=== PATIENT | female | born 1970 | race African-American/Black ===

== ENCOUNTER 2016-08-10 20:04 | Inpatient (IN) | payer OTHER ==
[2016-08-10 20:24] VITALS: BMI 29.9
--- NOTE | 2016-08-10 21:22 | HP ---
CIWA Score - CIWA Score Nausea/Vomitin-Mild Nausea/No Vomiting Muscle Tremors: 4-Moderate,w/Arms Extend Anxiety: 3 Agitation: 2 Paroxysmal Sweats: 2 Orientation: 3-Disoriented Date>2 days Tacttile Disturbances: 0-None Auditory Disturbances: 0-None Visual Disturbances: 2-Mild Sensitivity Headache: 0-None Present CIWA-Ar Total Score: 17 Admission ROS BHS - HPI Chief Complaint: WITHDRAWAL SYMPTOMS Allergies/Adverse Reactions: Allergies Allergy/AdvReac Type Severity Reaction Status Date / Time No Known Allergies Allergy Verified 10/23/15 14:41 History of Present Illness: 46 Y.O. WOMAN WITH AN EXTENSIVE HISTORY OF ALCOHOL DEPENDENCE IS SEEKING DETOX. SHE REPORTS SHE DOES NOT HAVE A SIGNIFICANT PERIOD OF SOBRIETY. SHE HAS A BRUISE AND SUBCONJUNCTIAL HEMMORRHAGE TO RIGHT EYE AFTER FALLING 4 DAYS AGO. SHE WENT TO THE ER AT [facility] FOR TREATMENT. Exam Limitations: Intoxication - Ebola screening Have you traveled outside of the country in the last 21 days: No (N) Have you had contact with anyone from an Ebola affected area: No Have you been sick,other than usual withdrawal symptoms: No Do you have a fever: No - Review of Systems Constitutional: Changes in sleep EENT: reports: Eye Pain, Other (subconjunctival hemorrhage and bruise to right eye) Respiratory: reports: Shortness of Breath (HX ASTHMA) Cardiac: reports: Other (ENLARGED HEART) GI: reports: Constipated : reports: No Symptoms Reported Musculoskeletal: reports: Joint Pain (LEFT KNEE) Integumentary: reports: Bruising (RIGHT EYE) Neuro: reports: Seizure (1 YEAR AGO), Tremors Endocrine: reports: No Symptoms Reported Hematology: reports: Anemia Psychiatric: reports: Anxious, Depressed, other (BIPOLAR) Other Systems: Reviewed and Negative Patient History - Patient Medical History Hx Anemia: Yes (no medication) Hx Asthma: Yes Hx Chronic Obstructive Pulmonary Disease (COPD): No Hx Cancer: No Hx Cardiac Disorders: No Hx Congestive Heart Failure: Yes Hx Hypertension: Yes Hx Hypercholesterolemia: Yes Hx Pacemaker: No HX Cerebrovascular Accident: No Hx Seizures: Yes (1 YEAR AGO ) Hx Dementia: No Hx Diabetes: No Hx Gastrointestinal Disorders: Yes Hx Liver Disease: Yes (CIRRHOSHIS ) Hx Genitourinary Disorders: No Hx Sexually Transmitted Disorders: No Hx Renal Disease (ESRD): No Hx Thyroid Disease: No Hx Human Immunodeficiency Virus (HIV): No Hx Hepatitis C: Yes Hx Depression: Yes Hx Suicide Attempt: No Hx Bipolar Disorder: Yes Hx Schizophrenia: No - Patient Surgical History Past Surgical History: No Hx Neurologic Surgery: No Hx Cataract Extraction: No Hx Cardiac Surgery: No Hx Lung Surgery: No Hx Breast Surgery: No Hx Breast Biopsy: No Hx Abdominal Surgery: No Hx Appendectomy: No Hx Cholecystectomy: No Hx Genitourinary Surgery: No Hx Section: No Hx Orthopedic Surgery: No Anesthesia Reaction: No - PPD History Previous Implant?: Yes Documented Results: Negative w/o proof Date: 10/03/15 PPD to be Administered?: Yes - Reproductive History Patient is a Female of Child Bearing Age (11 -55 yrs old): Yes Last Menstrual Period: 04/01/16 Patient : No - Smoking Cessation Smoking history: Never smoked Have you smoked in the past 12 months: No Aproximately how many cigarettes per day: 0 Hx Chewing Tobacco Use: No - Substance & Tx. History Hx Alcohol Use: Yes Hx Substance Use: No (DETOX AND REHAB ) Substance Use Type: Alcohol Hx Substance Use Treatment: Yes (ALCOHOL AND DETOX ) - Substances Abused Alcohol Route: Oral Frequency: Daily Amount used: 1-2 PINTS OF LIQUOR Age of first use: 24 Date of Last Use: 08/10/16 Family Disease History - Family Disease History Family Disease History: Diabetes: Mother, Heart Disease: Mother, CA: Mother, Other: Son (ALCOHOL DEPENDENT ) Admission Physical Exam BHS - Vital Signs Vital Signs: Vital Signs - 24 hr 08/10/16 20:22 Temperature 96.8 F L Pulse Rate 92 H Respiratory 18 Rate Blood Pressure 130/85 - Physical General Appearance: Yes: Alcohol on Breath, Intoxicated, Tremorous, Irritable, Anxious HEENTM: Yes: Other (RIGHT SUBCONJUNCTIVAL HEMORRHAGE) Respiratory: Yes: Chest Non-Tender, Lungs Clear, Normal Breath Sounds Neck: Yes: No masses,lesions,Nodules, Trachea in good position Breast: Yes: Breast Exam Deferred Cardiology: Yes: Regular Rhythm, Regular Rate, S1, S2 Abdominal: Yes: Non Tender, Flat Genitourinary: Yes: Other (NO COMPLAINTS REPORTED) Back: Yes: Normal Inspection Musculoskeletal: Yes: full range of Motion, Joint Stiffness Extremities: Yes: Tremors Neurological: Yes: Alert, Confused Integumentary: Yes: Normal Color, Warm, Pitting Edema (B/L LE) Lymphatic: Yes: Within Normal Limits - Diagnostic (1) Alcohol dependence with uncomplicated withdrawal Current Visit: Yes Status: Chronic (2) CHF (congestive heart failure) Current Visit: Yes Status: Chronic Qualifiers: Congestive heart failure type: unspecified congestive heart failure type (3) Eye injury, superficial Current Visit: Yes Status: Acute Qualifiers: Laterality: right (4) History of seizure Current Visit: Yes Status: Chronic (5) Asthma Current Visit: Yes Status: Chronic Cleared for Admission [facility] - Detox or Rehab [facility] Level of Care: Medically Managed Detox Regimen/Protocol: Librium [facility] Breath Alcohol Content Breath Alcohol Content: 0.275 Urine Pregancy Test - Result Urine Test Results: Negative- NO Line Present Urine Drug Screen - Results Drug Screen Negative: No Urine Drug Screen Results: BZO-Benzodiazepines
[2016-08-10] MEDS ORDERED: MAGNESIUM CITRATE 300 ML BOTTLE PO PRN (21:51)
[2016-08-10] MEDS ORDERED: MENTHOL/PHENOL 1 EACH UD MM PRN (21:51)
[2016-08-10] MEDS ORDERED: chlordiazePOXIDE HCL 25 MG CAPSULE PO ONE (21:51)
[2016-08-10] MEDS ORDERED: P-EPHED 60MG/TRIPROLIDI 2.5MG TABLET PO PRN (21:51)
[2016-08-10] MEDS ORDERED: guaiFENesin/D-METHORPHAN HB 10 ML UNIT-DOSE CUPS PO PRN (21:51)
[2016-08-10] MEDS ORDERED: LOPERAMIDE HCL 2 MG CAPSULE PO PRN (21:51)
[2016-08-10] MEDS ORDERED: MAGNESIUM HYDROX 2400MG/30ML ORAL SUSPENSION 30 ML CUP PO PRN (21:51)
[2016-08-10] MEDS ORDERED: diphenhydrAMINE HCL 50 MG CAPSULE PO PRN (21:51)
[2016-08-10] MEDS ORDERED: IBUPROFEN 400 MG TABLET (FP) PO PRN (21:51)
[2016-08-10] MEDS ORDERED: MAG HYDROX/AL HYDROX/SIMETH 30 ML UNIT-DOSE CUP PO PRN (21:51)
[2016-08-11] MEDS: levETIRAcetam 500 MG TABLET (FP) PO SCH ×3 (01:58→22:57)
[2016-08-11] MEDS ORDERED: chlordiazePOXIDE HCL 25 MG CAPSULE PO ONE (02:00)
[2016-08-11] MEDS: THIAMINE HCL 100 MG TABLET (FP) PO SCH ×2 (02:11→22:57)
[2016-08-11] MEDS: chlordiazePOXIDE HCL 25 MG CAPSULE PO SCH ×5 (02:11→22:57)
[2016-08-11] MEDS: CARVEDILOL 3.125 MG TABLET (FP) PO SCH (10:14)
[2016-08-11] MEDS: PRENATAL VITAMINS W/ FOLIC ACID TABLET (FP) PO SCH (10:15)
--- NOTE | 2016-08-11 10:36 | PN ---
S CIWA - CIWA Score Nausea/Vomitin Muscle Tremors: 4-Moderate,w/Arms Extend Anxiety: 3 Agitation: 2 Paroxysmal Sweats: 3 Orientation: 0-Oriented Tacttile Disturbances: 2-Mild Itch/Numbness/Burn Auditory Disturbances: 0-None Visual Disturbances: 0-None Headache: 0-None Present CIWA-Ar Total Score: 16 BHS Progress Note (SOAP) Subjective: interrupted sleep, sweats, shakes , od hemmorhage Assessment: 08/11/16 10:33 Vital Signs Temperature 98.4 F 08/11/16 10:21 Pulse Rate 103 H 08/11/16 10:21 Respiratory Rate 16 08/11/16 10:21 Blood Pressure 140/93 08/11/16 10:21 O2 Sat by Pulse Oximetry (%) labs pending 08/11/16 10:34 pt aox3 ambulating , tremulous OD ecchymosis inferior orbit , sub conjunctival hemorrhage rt lat 08/11/16 10:35 withdrawal sx's conjunctival hemmorhage OD Plan: cont dettox increase fluids librium prn warm compresses to od
[2016-08-11 10:51] LABS: ALBUMIN 2.9 g/dl (3.4-5.0); ALK PHOS 206 U/L (45-117); ANION GAP 14 (8-16); BILIRUBIN,TOTAL 2.8 mg/dL (0.2-1.0); CO2 22 mmol/L (21-32); CREATININE 0.6 mg/dL (0.55-1.02); GLUCOSE,RANDOM 149 mg/dL (74-106); SGOT/AST 137 U/L (15-37); SGPT/ALT 36 U/L (12-78); TOT PROT 6.8 g/dl (6.4-8.2)
[2016-08-11 11:01] LABS: MCH 32.2 pg (25.7-33.7); MCHC 32.2 g/dl (32.0-36.0); MEAN CELL VOLUME 100.1 fl (80-96); RDW 16.2 % (11.6-15.6); WHITE BLOOD COUNT 2.2 K/mm3 (4.0-10.0)
[2016-08-11 11:12] LABS: PLATELET COUNT 18 K/MM3 (134-434)
--- NOTE | 2016-08-11 11:51 | EKG ---
Test Reason : Blood Pressure : / mmHG Vent. Rate : 072 BPM Atrial Rate : 072 BPM P-R Int : 154 ms QRS Dur : 090 ms QT Int : 464 ms P-R-T Axes : 060 040 044 degrees QTc Int : 508 ms NORMAL SINUS RHYTHM VOLTAGE CRITERIA FOR LEFT VENTRICULAR HYPERTROPHY NONSPECIFIC ST AND T WAVE ABNORMALITY PROLONGED QT ABNORMAL ECG WHEN COMPARED WITH ECG OF 23-OCT-2015 17:59, NO SIGNIFICANT CHANGE WAS FOUND Confirmed by DALLAS PICKARD MD ([id number]) on 08/11/2016 11:51:07 AM Referred By: Confirmed By:DALLAS PICKARD MD
--- NOTE | 2016-08-11 12:05 | PN ---
[facility] Progress Note Note: 46 y/o f pt admitted for alcohol detox. Pt has h/o fall 4 days ago with OD subconj. hemorrhage and infr-orbital ecchymosis . Pt platlet count is 18k and eye was never evaluated . Has PMHX -chf, sz d/o, asthma , hep c . and pancytopenia Laboratory Tests 08/11/16 08/11/16 08/11/16 07:00 07:00 07:00 WBC 2.2 L RBC 2.87 L Hgb 9.2 L Hct 28.7 L MCV 100.1 H MCHC 32.2 RDW 16.2 H Plt Count 18 L* D MPV 9.0 Sodium 142 Potassium 3.5 Chloride 106 Carbon Dioxide 22 Anion Gap 14 BUN 17 D Creatinine 0.6 D Creat Clearance w eGFR > 60 Random Glucose 149 H D Calcium 8.0 L Total Bilirubin 2.8 H D AST 137 H D ALT 36 D Alkaline Phosphatase 206 H D Ammonia 68.7 H Total Protein 6.8 Albumin 2.9 L imp- OD trauma pancytopenia -platlets 18k elevated transaminases -hep c elevated ammonia level etoh withdrawal Plan- Ed evaluation pt signed out to Ray Marroquin in ED [facility] ambulette notified
[2016-08-11] MEDS: chlordiazePOXIDE HCL 25 MG CAPSULE PO PRN ×2 (12:40→20:17)
[2016-08-11 15:32] LABS: URINE APPEARANCE CLEAR; URINE BILIRUBIN NEGATIVE (NEGATIVE); URINE COLOR AMBER; URINE GLUCOSE (UA) NEGATIVE (NEGATIVE); URINE KETONE NEGATIVE (NEGATIVE); URINE LEUK ESTERASE NEGATIVE (NEGATIVE); URINE NITRITE NEGATIVE (NEGATIVE); URINE PROTEIN NEGATIVE (NEGATIVE); URINE UROBILINOGEN 4.0 E.U/dl E.U./dl (0.2-1.0)
[2016-08-11 15:38] LABS: URINE BLOOD 1+ (NEGATIVE)
[2016-08-11 16:06] LABS: URINE MUCUS RARE; URINE RBC 5 /hpf (0-3); URINE WBC 3 /hpf (3-5)
[2016-08-12] MEDS: ACETAMINOPHEN 325 MG TABLET (FP) PO PRN ×4 (03:48→19:55)
[2016-08-12] MEDS: chlordiazePOXIDE HCL 25 MG CAPSULE PO SCH ×3 (05:42→17:17)
[2016-08-12] MEDS: levETIRAcetam 500 MG TABLET (FP) PO SCH ×2 (10:19→22:07)
[2016-08-12] MEDS: PRENATAL VITAMINS W/ FOLIC ACID TABLET (FP) PO SCH (10:19)
[2016-08-12] MEDS: CARVEDILOL 3.125 MG TABLET (FP) PO SCH (10:20)
[2016-08-12] MEDS ORDERED: COLLOIDAL OATMEAL 1 BAR EACH TP PRN (11:14)
--- NOTE | 2016-08-12 11:19 | PN ---
S CIWA - CIWA Score Nausea/Vomitin-No Nausea/No Vomiting Muscle Tremors: 4-Moderate,w/Arms Extend Anxiety: 3 Agitation: 3 Paroxysmal Sweats: 3 Orientation: 0-Oriented Tacttile Disturbances: 0-None Auditory Disturbances: 0-None Visual Disturbances: 0-None Headache: 0-None Present CIWA-Ar Total Score: 13 S Progress Note (SOAP) Subjective: sweats shakes itchy skin agitation Objective: 08/12/16 11:15 Vital Signs Temperature 98.1 F 08/12/16 09:36 Pulse Rate 91 H 08/12/16 09:36 Respiratory Rate 16 08/12/16 09:36 Blood Pressure 129/91 08/12/16 09:36 O2 Sat by Pulse Oximetry (%) Laboratory Tests 08/11/16 08/11/16 08/11/16 07:00 07:00 07:00 WBC 2.2 L RBC 2.87 L Hgb 9.2 L Hct 28.7 L MCV 100.1 H MCHC 32.2 RDW 16.2 H Plt Count 18 L* D MPV 9.0 Sodium 142 Potassium 3.5 Chloride 106 Carbon Dioxide 22 Anion Gap 14 BUN 17 D Creatinine 0.6 D Creat Clearance w eGFR > 60 Random Glucose 149 H D Calcium 8.0 L Total Bilirubin 2.8 H D AST 137 H D ALT 36 D Alkaline Phosphatase 206 H D Ammonia Total Protein 6.8 Albumin 2.9 L Urine Color Urine Appearance Urine pH Ur Specific [place] Urine Protein Urine Glucose (UA) Urine Ketones Urine Blood Urine Nitrite Urine Bilirubin Urine Urobilinogen Ur Leukocyte Esterase Urine RBC Urine WBC Ur Epithelial Cells Urine Mucus RPR Titer Nonreactive 08/11/16 08/11/16 07:00 11:20 WBC RBC Hgb Hct MCV MCHC RDW Plt Count MPV Sodium Potassium Chloride Carbon Dioxide Anion Gap BUN Creatinine Creat Clearance w eGFR Random Glucose Calcium Total Bilirubin AST ALT Alkaline Phosphatase Ammonia 68.7 H Total Protein Albumin Urine Color [place] Urine Appearance Clear Urine pH 6.0 Ur Specific [place] 1.020 Urine Protein Negative Urine Glucose (UA) Negative Urine Ketones Negative Urine Blood 1+ H Urine Nitrite Negative Urine Bilirubin Negative Urine Urobilinogen 4.0 e.u/dl H Ur Leukocyte Esterase Negative Urine RBC 5 Urine WBC 3 Ur Epithelial Cells Rare Urine Mucus Rare RPR Titer cbc and cmp labs repeated awake/alert ambulating no acute distress Assessment: 08/12/16 11:16 withdrawal sx dry skin Plan: continue detox increase fluids aveeno soap benadryl prn lac hydrin
[2016-08-12] MEDS: AMMONIUM LACTATE 12% LOTION 225 GM BOTTLE TP PRN (12:06)
[2016-08-12] MEDS: hydrOXYzine PAMOATE 50 MG CAPSULE (FP) PO PRN (13:11)
[2016-08-12] MEDS: THIAMINE HCL 100 MG TABLET (FP) PO SCH (22:07)
[2016-08-12] MEDS: chlordiazePOXIDE 5 MG CAPSULE PO SCH (22:07)
[2016-08-12] MEDS: diphenhydrAMINE HCL 25 MG CAPSULE (FP) PO PRN (22:11)
[2016-08-13] MEDS: chlordiazePOXIDE HCL 25 MG CAPSULE PO PRN (01:49)
[2016-08-13] MEDS: hydrOXYzine PAMOATE 50 MG CAPSULE (FP) PO PRN (01:49)
[2016-08-13] MEDS: chlordiazePOXIDE 5 MG CAPSULE PO SCH ×3 (04:51→17:34)
--- NOTE | 2016-08-13 09:49 | PN ---
S Progress Note (SOAP) Subjective: alert,no complaint Objective: 08/13/16 09:48 Vital Signs Temperature 97.9 F 08/13/16 06:00 Pulse Rate 111 H 08/13/16 06:00 Respiratory Rate 20 08/13/16 06:00 Blood Pressure 106/78 08/13/16 06:00 O2 Sat by Pulse Oximetry (%) Assessment: 08/13/16 09:48 withdrawal symptom Plan: continue detox,awaiting for repeat cbc,cmp
--- NOTE | 2016-08-13 09:52 | PN ---
BHS Progress Note Note: ammonia level is 68.7 lactulose 20 grams po bid
[2016-08-13] MEDS: levETIRAcetam 500 MG TABLET (FP) PO SCH ×2 (09:53→22:31)
[2016-08-13] MEDS: PRENATAL VITAMINS W/ FOLIC ACID TABLET (FP) PO SCH (09:53)
[2016-08-13] MEDS: LACTULOSE 20 GM/30 ML UDC (FOR ORAL USE ONLY) PO SCH ×2 (10:11→22:31)
[2016-08-13] MEDS: CARVEDILOL 3.125 MG TABLET (FP) PO SCH (10:11)
[2016-08-13 10:21] LABS: BASOPHIL 0.9 % (0-2.0); EOSINOPHIL 1.6 % (0-4.5); MCH 32.7 pg (25.7-33.7); MCHC 33.1 g/dl (32.0-36.0); MEAN CELL VOLUME 98.8 fl (80-96); MEAN PLT VOLUME 9.5 fl (7.5-11.1); NEUTROPHILS 66.3 % (42.8-82.8); PLATELET COUNT 37 K/MM3 (134-434); RDW 16.2 % (11.6-15.6); WHITE BLOOD COUNT 3.4 K/mm3 (4.0-10.0)
[2016-08-13 11:52] LABS: ALBUMIN 3.3 g/dl (3.4-5.0); ALK PHOS 209 U/L (45-117); ANION GAP 9 (8-16); BILIRUBIN,TOTAL 3.9 mg/dL (0.2-1.0); CALCIUM 8.9 mg/dL (8.5-10.1); CO2 26 mmol/L (21-32); CREATININE 0.6 mg/dL (0.55-1.02); GLUCOSE,RANDOM 90 mg/dL (74-106); SGOT/AST 155 U/L (15-37); SGPT/ALT 42 U/L (12-78); TOT PROT 7.4 g/dl (6.4-8.2)
[2016-08-13] MEDS: diphenhydrAMINE HCL 25 MG CAPSULE (FP) PO PRN (18:35)
[2016-08-13] MEDS: AMMONIUM LACTATE 12% LOTION 225 GM BOTTLE TP PRN (22:31)
[2016-08-13] MEDS: THIAMINE HCL 100 MG TABLET (FP) PO SCH (22:31)
[2016-08-13] MEDS: chlordiazePOXIDE HCL 10 MG CAPSULE PO SCH (22:31)
[2016-08-13] MEDS: ACETAMINOPHEN 325 MG TABLET (FP) PO PRN (22:33)
[2016-08-14] MEDS: diphenhydrAMINE HCL 25 MG CAPSULE (FP) PO PRN (03:03)
[2016-08-14] MEDS: chlordiazePOXIDE HCL 10 MG CAPSULE PO SCH (05:02)
[2016-08-14 06:30] VITALS: BP 116/54; PULSE 94; TEMP 97.7
--- NOTE | 2016-08-14 08:03 | PN ---
S Progress Note (SOAP) Subjective: ALERT,NO COMPLAINT Objective: 08/14/16 08:10 Vital Signs Temperature 97.7 F 08/14/16 06:30 Pulse Rate 94 H 08/14/16 06:30 Respiratory Rate 16 08/14/16 06:30 Blood Pressure 116/54 08/14/16 06:30 O2 Sat by Pulse Oximetry (%) 08/14/16 08:10 Laboratory Last Values WBC 3.4 K/mm3 (4.0-10.0) L D 08/13/16 07:00 RBC 3.29 M/mm3 (3.60-5.2) L 08/13/16 07:00 Hgb 10.7 GM/dL (10.7-15.3) D 08/13/16 07:00 Hct 32.5 % (32.4-45.2) 08/13/16 07:00 MCV 98.8 fl (80-96) H 08/13/16 07:00 MCHC 33.1 g/dl (32.0-36.0) 08/13/16 07:00 RDW 16.2 % (11.6-15.6) H 08/13/16 07:00 Plt Count 37 K/MM3 (134-434) L D 08/13/16 07:00 MPV 9.5 fl (7.5-11.1) 08/13/16 07:00 Neutrophils % 66.3 % (42.8-82.8) 08/13/16 07:00 Lymphocytes % 13.9 % (8-40) 08/13/16 07:00 Monocytes % 17.3 % (3.8-10.2) H 08/13/16 07:00 Eosinophils % 1.6 % (0-4.5) D 08/13/16 07:00 Basophils % 0.9 % (0-2.0) 08/13/16 07:00 Sodium 134 mmol/L (136-145) L 08/13/16 07:00 Potassium 4.0 mmol/L (3.5-5.1) 08/13/16 07:00 Chloride 99 mmol/L (98-107) 08/13/16 07:00 Carbon Dioxide 26 mmol/L (21-32) 08/13/16 07:00 Anion Gap 9 (8-16) 08/13/16 07:00 BUN 24 mg/dL (7-18) H D 08/13/16 07:00 Creatinine 0.6 mg/dL (0.55-1.02) 08/13/16 07:00 Creat Clearance w eGFR > 60 (>60) 08/13/16 07:00 Random Glucose 90 mg/dL (74-106) D 08/13/16 07:00 Calcium 8.9 mg/dL (8.5-10.1) 08/13/16 07:00 Total Bilirubin 3.9 mg/dL (0.2-1.0) H D 08/13/16 07:00 AST 155 U/L (15-37) H 08/13/16 07:00 ALT 42 U/L (12-78) 08/13/16 07:00 Alkaline Phosphatase 209 U/L (45-117) H 08/13/16 07:00 Ammonia 68.7 umol/L (11-32) H 08/11/16 07:00 Total Protein 7.4 g/dl (6.4-8.2) 08/13/16 07:00 Albumin 3.3 g/dl (3.4-5.0) L 08/13/16 07:00 Urine Color [place] 08/11/16 11:20 Urine Appearance Clear 08/11/16 11:20 Urine pH 6.0 (5.0-8.0) 08/11/16 11:20 Ur Specific [place] 1.020 (1.001-1.035) 08/11/16 11:20 Urine Protein Negative (NEGATIVE) 08/11/16 11:20 Urine Glucose (UA) Negative (NEGATIVE) 08/11/16 11:20 Urine Ketones Negative (NEGATIVE) 08/11/16 11:20 Urine Blood 1+ (NEGATIVE) H 08/11/16 11:20 Urine Nitrite Negative (NEGATIVE) 08/11/16 11:20 Urine Bilirubin Negative (NEGATIVE) 08/11/16 11:20 Urine Urobilinogen 4.0 e.u/dl E.U./dl (0.2-1.0) H 08/11/16 11:20 Ur Leukocyte Esterase Negative (NEGATIVE) 08/11/16 11:20 Urine RBC 5 /hpf (0-3) 08/11/16 11:20 Urine WBC 3 /hpf (3-5) 08/11/16 11:20 Ur Epithelial Cells Rare /hpf (FEW) 08/11/16 11:20 Urine Mucus Rare 08/11/16 11:20 RPR Titer Nonreactive (NONREACTIVE) 08/11/16 07:00 Assessment: 08/14/16 08:11 NO WITHDRAWAL SYMPTOM Plan: DISCHARGE TODAY,FOLLOW UP WITH AFTER CARE PROGRAM ARRANGEMENT AND PMD FOR MEDICAL PROBLEM
--- NOTE | 2016-08-14 08:19 | DS ---
[facility] Detox Discharge Summary Admission Date: 08/10/16 Discharge Date: 08/14/16 - History Present History: Alcohol Dependence Additional Comments: FOLLOW UP WITH AFTER CARE PROGRAM ARRANGEMENT AND TO SEE PMD FOR MEDICAL PROBLEM AND PANCYTOPENIA,SEIZURE,HEPATITIS C,AZOTHEMIA AND ELEVATION OF AMMONIA Pertinent Past History: SEIZURE ASTHMA HYPERTENSION INJURY TO RIGHT EYE WITH SUBCONJUNCTIVAL HEMORRHAGE CHF - Physical Exam Results Vital Signs: Vital Signs Temperature 97.7 F 08/14/16 06:30 Pulse Rate 94 H 08/14/16 06:30 Respiratory Rate 16 08/14/16 06:30 Blood Pressure 116/54 08/14/16 06:30 O2 Sat by Pulse Oximetry (%) Pertinent Admission Physical Exam Findings: WITHDRAWAL SYMPTOM - Treatment Hospital Course: Detox Protocol Followed, Detoxed Safely, Responded well, Discharged Condition Good (DECLINED) - Medication Discharge Medications: Ambulatory Orders Folic Acid - 1 mg PO DAILY 02/20/14 Multivitamins [Multivit ([facility] Formulary)] 1 tab PO DAILY 02/20/14 Thiamine HCl [Vitamin B-1] 100 mg PO DAILY 02/20/14 Carvedilol [Coreg -] 12.5 mg PO DAILY #60 tablet 03/28/14 Furosemide [Lasix -] 20 mg PO DAILY #30 tablet 03/28/14 Levetiracetam [Keppra -] 500 mg PO DAILY #30 tablet 03/28/14 Gabapentin [Neurontin -] 300 mg PO TID #90 capsule 03/29/14 Risperidone [Risperdal -] 1 mg PO HS #30 tablet 03/29/14 Trazodone HCl [Desyrel -] 150 mg PO HS #30 tablet 03/29/14 Lisinopril [Zestril] 10 mg PO DAILY 10/01/15 Quetiapine Fumarate [Seroquel] 150 mg PO HS 10/01/15 Chlordiazepoxide [Librium -] 15 mg PO [id number] #3 capsule MDD 300 10/25/15 - Diagnosis (1) Acquired pancytopenia Current Visit: No Status: Acute (2) Alcohol dependence with uncomplicated withdrawal Current Visit: Yes Status: Chronic (3) Asthma Current Visit: Yes Status: Chronic (4) CHF (congestive heart failure) Current Visit: Yes Status: Chronic Qualifiers: Congestive heart failure type: unspecified congestive heart failure type (5) History of seizure Current Visit: Yes Status: Chronic (6) Essential hypertension Current Visit: No Status: Chronic (7) Hepatitis C Current Visit: No Status: Chronic Qualifiers: Viral hepatitis chronicity: chronic Hepatic coma status: without hepatic coma Qualified Code(s): B18.2 - Chronic viral hepatitis C (8) Bipolar 1 disorder Current Visit: No Status: Suspected (9) Increased ammonia level Current Visit: Yes Status: Acute
== END 2016-08-14 09:17 | disposition home or self-care (01) | DRG 775 ==
LOC: YASAS 20:04 → Y6N 22:29
PROVIDERS: ADMIT Internal Medicine Addiction Medicine; ATTEND Internal Medicine Addiction Medicine
PROC: HZ2ZZZZ Detoxification Services for Substance Abuse Treatment (ICD-10-PCS; principal; 2016-08-14)
DX: F10.230 Alcohol dependence with withdrawal, uncomplicated (principal); F31.89 Other bipolar disorder; I10 Essential (primary) hypertension; I50.9 Heart failure, unspecified; B18.2 Chronic viral hepatitis C; J45.909 Unspecified asthma, uncomplicated; D61.818 Other pancytopenia; H11.31 Conjunctival hemorrhage, right eye; R79.89 Other specified abnormal findings of blood chemistry
CPT/HCPCS: 36415; 80053; 81003; 81015; 82140; 85025; 85027; 86593; 93005; 93010

== ENCOUNTER 2016-08-11 13:02 | Emergency (ER) | payer OTHER ==
[2016-08-11 13:15] VITALS: TEMP 99.5; BMI 27.3
--- NOTE | 2016-08-11 13:46 | PDOC ---
History of Present Illness - General History Source: Patient Exam Limitations: No Limitations - History of Present Illness Initial Comments: 08/11/16 13:51 The patient is a 46-year-old woman with a significant history of anemia, hepatitis C, pancytopenia, hypertension, hypercholesterolemia, asthma, congestive heart failure and seizures who was admitted to [facility] for alcohol detox who was sent to the emergency department via EMS for further evaluation a low platelet count. As per [facility], the patient's platelets were noted to be "18,000". She fell and injured her head approximately 4 days ago. She was noted to have injuries to her eyes and was sent to the ER for a head CT. HPI is limited. <Chioma Cantu - Last Filed: 08/11/16 14:26> <Wellington Wilder - Last Filed: 08/11/16 16:38> - General Chief Complaint: Revisit, Lab Variance Stated Complaint: ABNORMAL LABS Time Seen by Provider: 08/11/16 13:14 Past History <Chioma Cantu - Last Filed: 08/11/16 14:26> - Past Medical History Anemia: Yes (no medication) Asthma: Yes Cancer: No Cardiac Disorders: No CVA: No COPD: No CHF: Yes Dementia: No Diabetes: No GI Disorders: Yes Disorders: No HTN: Yes Hypercholesterolemia: Yes Kidney Stones: No Liver Disease: Yes (CIRRHOSHIS ) Suicide Attempt (Hx): No Seizures: Yes (1 YEAR AGO ) Thyroid Disease: No - Surgical History Abdominal Surgery: No Appendectomy: No Cardiac Surgery: No Cholecystectomy: No Lung Surgery: No Neurologic Surgery: No Orthopedic Surgery: No - Reproductive History PID: No - Psycho/Social/Smoking Cessation Hx Anxiety: Yes Suicidal Ideation: No Smoking History: Never smoked Have you smoked in the past 12 months: Yes Number of Cigarettes Smoked Daily: 0 Information on smoking cessation initiated: No 'Breaking Loose' booklet given: 10/01/15 Hx Alcohol Use: Yes Drug/Substance Use Hx: No Substance Use Type: Alcohol Hx Substance Use Treatment: Yes (ALCOHOL AND DETOX ) <Wellington Wilder - Last Filed: 08/11/16 16:38> - Past Medical History Allergies/Adverse Reactions: Allergies Allergy/AdvReac Type Severity Reaction Status Date / Time No Known Allergies Allergy Verified 08/11/16 13:12 Home Medications: Ambulatory Orders Folic Acid - 1 mg PO DAILY 02/20/14 Multivitamins [Multivit ([facility] Formulary)] 1 tab PO DAILY 02/20/14 Thiamine HCl [Vitamin B-1] 100 mg PO DAILY 02/20/14 Carvedilol [Coreg -] 12.5 mg PO DAILY #60 tablet 03/28/14 Furosemide [Lasix -] 20 mg PO DAILY #30 tablet 03/28/14 Levetiracetam [Keppra -] 500 mg PO DAILY #30 tablet 03/28/14 Gabapentin [Neurontin -] 300 mg PO TID #90 capsule 03/29/14 Risperidone [Risperdal -] 1 mg PO HS #30 tablet 03/29/14 Trazodone HCl [Desyrel -] 150 mg PO HS #30 tablet 03/29/14 Lisinopril [Zestril] 10 mg PO DAILY 10/01/15 Quetiapine Fumarate [Seroquel] 150 mg PO HS 10/01/15 Chlordiazepoxide [Librium -] 15 mg PO G4D-TMO #3 capsule MDD 300 10/25/15 Review of Systems - Review of Systems Constitutional: No: Chills, Fever HEENTM: No: Recent change in vision Respiratory: No: Cough Cardiac (ROS): No: Chest Pain ABD/GI: No: Nausea, Vomiting Musculoskeletal: No: Joint Pain, Muscle Pain Neurological: No: Headache, Dizziness All Other Systems: Reviewed and Negative <Wellington Wilder - Last Filed: 08/11/16 16:38> *Physical Exam - Vital Signs Last Vital Signs Temp Pulse Resp BP Pulse Ox 99.5 F 75 20 142/94 100 08/11/16 13:12 08/11/16 13:12 08/11/16 13:12 08/11/16 13:12 08/11/16 13:12 - Physical Exam Comments: 08/11/16 13:51 General: Somnolent but arousable to verbal stimuli. Head: Atraumatic and nontender. HEENT: There is ecchymosis around the right eye with mild subconjunctival hemorrhage laterally on the right No bony step off or deformity. Pupils are equal round and reactive to light, extraocular movements are intact with intact vertical gaze, bilaterally. The tympanic membranes are clear, no hemotympanum. No septal hematoma. The oropharynx is clear. There is a 2 mm abrasion to the right lower lip and the tip of the right tongue that is actively bleeding Neck: The trachea is midline, there is no stridor. There is no midline cervical spine tenderness, full range of motion of neck. Chest: Nontender, no ecchymosis or abrasions. Heart: S1-S2, regular rate and rhythm. No murmurs. Lungs: Clear to auscultation bilaterally. Symmetric chest rise. Abdomen: Soft/nontender/nondistended. Bowel sounds are normal. There is no abdominal or flank ecchymosis. Back/Pelvis: There is no midline spinal tenderness or step-off. Pelvis is stable and nontender. Extremities: There is no extremity deformity or joint swelling. No focal bony tenderness throughout. 2+ distal pulses throughout. Neuro: Limited. Patient is somnolent but arousable to verbal stimuli. Skin: No hematomas/lacerations. Psych: Deferred. <Chioma Cantu - Last Filed: 08/11/16 14:26> - Vital Signs Last Vital Signs Temp Pulse Resp BP Pulse Ox 99.5 F 75 20 142/94 100 08/11/16 13:12 08/11/16 13:12 08/11/16 13:12 08/11/16 13:12 08/11/16 13:12 <Wellington Wilder - Last Filed: 08/11/16 16:38> Medical Decision Making - Medical Decision Making 08/11/16 13:43 A portion of this note was documented by scribe services under my direction. I have reviewed the details of the note, within reason, and agree with the documentation with the following case summary and management plan written by me. 46-year-old female with history of seizures, CHF, hep C, pancytopenia admitted to [facility] for alcohol detox with history of fall and head injury 4 days ago, now sent for further evaluation after platelets were noted to be 18,000. Patient initially told staff she was evaluated at [facility] ER after her fall, then states she was not evaluated. Periorbital and some conjunctival ecchymosis was noted, so she was sent to the ED for imaging. Vital signs stable. Periorbital ecchymosis without bony step-off with small right lateral sub- conjunctival hemorrhage Extraocular movements are intact Neurologically intact 46-year-old female with pancytopenia with fall/facial injury 4 days ago now sent in for imaging to rule out TBI. Check head CT and facial bone CT If normal, no longer concern for delayed bleeding given the injury was 4 days ago, and could return to [place] care 08/11/16 16:36 No acute intracranial pathology, no orbital fractures but there is some fluid in the sinuses. Clinically unchanged, neurologically intact, can return to [facility]. Ambulance called. <Wellington Wilder - Last Filed: 08/11/16 16:38> *DC/Admit/Observation/Transfer - Attestations Scribe Attestion: 08/11/16 13:51 Documentation prepared by Chioma Cantu, acting as medical certification specialist for Wellington Wilder MD. <Chioma Cantu - Last Filed: 08/11/16 14:26> <Wellington Wilder - Last Filed: 08/11/16 16:38> Diagnosis at time of Disposition: Pancytopenia, Alcohol dependence, continuous Head injury Qualifiers: Encounter type: initial encounter Qualified Code(s): S09.90XA - Unspecified injury of head, initial encounter - Discharge Dispostion Disposition: I.P. ALCOHOL/SUBS ABUSE REHAB Condition at time of disposition: Fair - Patient Instructions Printed Discharge Instructions: DI for Closed Head Injury Additional Instructions: Activity as tolerated. Stay hydrated. Tylenol 1000 mg every 8 hours as needed for pain. Ice and elevate the affected areas for 20 minutes every 3-4 hours to reduce swelling. Continue your medications as previously prescribed by your physician. Return to [facility] to continue your detox. Return to the emergency department for any new or concerning symptoms, particularly severe swelling, vision changes, severe headache or confusion or vomiting.
[2016-08-11 17:39] VITALS: BP 138/85; PULSE 80
== END 2016-08-11 17:30 | disposition other institution (70) ==
LOC: JER 13:02
DX: D61.818 Other pancytopenia (principal); F10.20 Alcohol dependence, uncomplicated; E78.00 Pure hypercholesterolemia, unspecified; G40.909 Epilepsy, unspecified, not intractable, without status epilepticus; J45.909 Unspecified asthma, uncomplicated; S05.11XA Contusion of eyeball and orbital tissues, right eye, initial encounter; H11.31 Conjunctival hemorrhage, right eye; W19.XXXA Unspecified fall, initial encounter; Y93.89 Activity, other specified; Y92.89 Other specified places as the place of occurrence of the external cause
CPT/HCPCS: 70450-TC; 70486-TC; 84703; 99282-25

== ENCOUNTER 2017-11-18 09:47 | Inpatient (IN) | payer OTHER ==
[2017-11-18 12:22] VITALS: BMI 28.3
--- NOTE | 2017-11-18 14:25 | HP ---
CIWA Score - CIWA Score Nausea/Vomitin Muscle Tremors: 2 Anxiety: 3 Agitation: 2 Paroxysmal Sweats: 3 Orientation: 0-Oriented Tacttile Disturbances: 1-Very Mild Itch/Numbness Auditory Disturbances: 0-None Visual Disturbances: 0-None Headache: 0-None Present CIWA-Ar Total Score: 13 Admission ROS BHS - HPI Chief Complaint: I need to stop drinking Allergies/Adverse Reactions: Allergies Allergy/AdvReac Type Severity Reaction Status Date / Time No Known Allergies Allergy Verified 11/18/17 14:12 History of Present Illness: 47 y/o m pt with h/o chronic alcoholism seeking detox. Exam Limitations: No Limitations - Ebola screening Have you traveled outside of the country in the last 21 days: No Have you had contact with anyone from an Ebola affected area: No Have you been sick,other than usual withdrawal symptoms: No Do you have a fever: No - Review of Systems Constitutional: Malaise, Night Sweats, Changes in sleep EENT: reports: No Symptoms Reported Respiratory: reports: No Symptoms reported Cardiac: reports: No Symptoms Reported GI: reports: Nausea : reports: Frequency Musculoskeletal: reports: Muscle Pain, Other (leg cramps) Integumentary: reports: No Symptoms Reported Neuro: reports: Tremors, Dizziness Endocrine: reports: No Symptoms Reported Hematology: reports: No Symptoms Reported Psychiatric: reports: Agitated, Anxious, Depressed Other Systems: Reviewed and Negative Patient History - Patient Medical History Hx Anemia: Yes (no medication) Hx Asthma: Yes Hx Chronic Obstructive Pulmonary Disease (COPD): No Hx Cancer: No Hx Cardiac Disorders: No Hx Congestive Heart Failure: Yes Hx Hypertension: Yes Hx Hypercholesterolemia: Yes Hx Pacemaker: No HX Cerebrovascular Accident: No Hx Seizures: Yes (1 YEAR AGO ) Hx Dementia: No Hx Diabetes: No Hx Gastrointestinal Disorders: Yes Hx Liver Disease: Yes (CIRRHOSHIS ) Hx Genitourinary Disorders: No Hx Sexually Transmitted Disorders: No Hx Renal Disease (ESRD): No Hx Thyroid Disease: No Hx Human Immunodeficiency Virus (HIV): No Hx Hepatitis C: Yes Hx Depression: Yes Hx Suicide Attempt: No Hx Bipolar Disorder: Yes Hx Schizophrenia: No - Patient Surgical History Past Surgical History: No Hx Neurologic Surgery: No Hx Cataract Extraction: No Hx Cardiac Surgery: No Hx Lung Surgery: No Hx Breast Surgery: No Hx Breast Biopsy: No Hx Abdominal Surgery: No Hx Appendectomy: No Hx Cholecystectomy: No Hx Genitourinary Surgery: No Hx Section: No Hx Orthopedic Surgery: No Anesthesia Reaction: No - PPD History Date: 08/13/16 - Reproductive History Last Menstrual Period: 04/01/16 - Smoking Cessation Smoking history: Never smoked Have you smoked in the past 12 months: Yes Aproximately how many cigarettes per day: 0 Hx Chewing Tobacco Use: No - Substance & Tx. History Hx Alcohol Use: Yes Hx Substance Use: No Substance Use Type: Alcohol Hx Substance Use Treatment: Yes - Substances Abused Alcohol Route: Oral Frequency: Daily Amount used: 1/2 pint vodka Age of first use: 24 Date of Last Use: 11/18/17 Family Disease History - Family Disease History Family Disease History: Diabetes: Mother, Heart Disease: Mother, CA: Mother, Other: Son (ALCOHOL DEPENDENT ) Admission Physical Exam BHS - Vital Signs Vital Signs: Vital Signs - 24 hr 11/18/17 12:20 Temperature 96.1 F L Pulse Rate 88 Respiratory 20 Rate Blood Pressure 105/63 - Physical General Appearance: Yes: Disheveled, Anxious HEENTM: Yes: EOMI, Hearing grossly Normal, Normocephalic, Normal Voice, KIA Respiratory: Yes: Chest Non-Tender, Lungs Clear, Normal Breath Sounds, No Respiratory Distress Neck: Yes: Supple, Trachea in good position Breast: Yes: Breast Exam Deferred Cardiology: Yes: Regular Rhythm, Regular Rate, S1, S2 Abdominal: Yes: Non Tender, Soft, Increased Bowel Sounds, Protuberent Genitourinary: Yes: Frequency Back: Yes: Decreased Range of Motion Musculoskeletal: Yes: Muscle Pain Extremities: Yes: Tremors Neurological: Yes: forging engineer II-XII NML intact, Fully Oriented, Alert, Motor Strength 5/5, Finger to Nose Integumentary: Yes: Moist Lymphatic: Yes: Within Normal Limits - Diagnostic (1) Alcoholism Current Visit: No Status: Acute (2) Anemia Current Visit: No Status: Chronic Qualifiers: Anemia type: unspecified type Qualified Code(s): D64.9 - Anemia, unspecified (3) Asthma Current Visit: No Status: Chronic (4) Essential hypertension Current Visit: No Status: Chronic (5) Hepatitis C Current Visit: No Status: Chronic Qualifiers: Viral hepatitis chronicity: chronic Hepatic coma status: without hepatic coma Qualified Code(s): B18.2 - Chronic viral hepatitis C (6) History of seizure Current Visit: No Status: Chronic (7) Bipolar 1 disorder Current Visit: No Status: Chronic Cleared for Admission [facility] - Detox or Rehab [facility] Level of Care: Medically Managed Detox Regimen/Protocol: Librium [facility] Breath Alcohol Content Breath Alcohol Content: 0.229 Urine Pregancy Test - Result Urine Test Results: Negative- NO Line Present Urine Drug Screen - Results Drug Screen Negative: No Urine Drug Screen Results: BZO-Benzodiazepines
[2017-11-18] MEDS ORDERED: MENTHOL/PHENOL 1 EACH UD MM PRN (14:44)
[2017-11-18] MEDS ORDERED: MAGNESIUM HYDROX 2400MG/30ML ORAL SUSPENSION 30 ML CUP PO PRN (14:44)
[2017-11-18] MEDS ORDERED: ACETAMINOPHEN 325 MG TABLET (FP) PO PRN (14:44)
[2017-11-18] MEDS ORDERED: hydrOXYzine PAMOATE 25 MG CAPSULE (FP) PO PRN (14:44)
[2017-11-18] MEDS ORDERED: P-EPHED 60MG/TRIPROLIDI 2.5MG TABLET PO PRN (14:44)
[2017-11-18] MEDS ORDERED: guaiFENesin/D-METHORPHAN HB 10 ML UNIT-DOSE CUPS PO PRN (14:44)
[2017-11-18] MEDS ORDERED: MAG HYDROX/AL HYDROX/SIMETH 30 ML UNIT-DOSE CUP PO PRN (14:44)
[2017-11-18] MEDS ORDERED: chlordiazePOXIDE HCL 25 MG CAPSULE PO PRN (14:44)
[2017-11-18] MEDS ORDERED: LOPERAMIDE HCL 2 MG CAPSULE PO PRN (14:44)
[2017-11-18] MEDS ORDERED: IBUPROFEN 400 MG TABLET (FP) PO PRN (14:44)
[2017-11-18] MEDS ORDERED: NICOTINE POLACRILEX 4 MG GUM BC PRN (14:44)
[2017-11-18] MEDS ORDERED: MAGNESIUM CITRATE 300 ML BOTTLE PO PRN (14:44)
[2017-11-18] MEDS: chlordiazePOXIDE HCL 25 MG CAPSULE PO SCH ×2 (18:13→22:13)
[2017-11-18] MEDS ORDERED: MELATONIN 5 MG TABLETS PO PRN (22:00)
[2017-11-18] MEDS: THIAMINE HCL 100 MG TABLET (FP) PO SCH (22:13)
[2017-11-18] MEDS: GABAPENTIN 300 MG CAPSULE (FP) PO SCH (22:14)
[2017-11-18] MEDS: levETIRAcetam 500 MG TABLET (FP) PO SCH (22:14)
[2017-11-19] MEDS: GABAPENTIN 300 MG CAPSULE (FP) PO SCH ×3 (06:03→23:19)
[2017-11-19] MEDS: chlordiazePOXIDE HCL 25 MG CAPSULE PO SCH ×4 (06:03→23:17)
[2017-11-19] MEDS ORDERED: NICOTINE 21 MG/24 HOURS TOPICAL PATCH TD SCH (10:00)
--- NOTE | 2017-11-19 10:19 | EKG ---
Test Reason : Blood Pressure : / mmHG Vent. Rate : 075 BPM Atrial Rate : 075 BPM P-R Int : 152 ms QRS Dur : 092 ms QT Int : 428 ms P-R-T Axes : 062 024 -30 degrees QTc Int : 477 ms NORMAL SINUS RHYTHM NONSPECIFIC ST AND T WAVE ABNORMALITY PROLONGED QT ABNORMAL ECG WHEN COMPARED WITH ECG OF 11-AUG-2016 01:16, INVERTED T WAVES HAVE REPLACED NONSPECIFIC T WAVE ABNORMALITY IN INFERIOR LEADS Confirmed by NEERAJ QUESADA, DALLAS ([id number]) on 11/19/2017 10:18:31 AM Referred By: Confirmed By:DALLAS PICKARD MD
[2017-11-19] MEDS: PRENATAL VITAMINS W/ FOLIC ACID TABLET (FP) PO SCH (10:28)
[2017-11-19] MEDS: CARVEDILOL 25 MG TABLET (FP) PO SCH (10:28)
[2017-11-19 10:29] LABS: HEMATOCRIT 27.4 % (32.4-45.2); HEMOGLOBIN 9.3 GM/dL (10.7-15.3); MCH 35.5 pg (25.7-33.7); MCHC 33.9 g/dl (32.0-36.0); MEAN CELL VOLUME 104.8 fl (80-96); MEAN PLT VOLUME 10.5 fl (7.5-11.1); RBC 2.61 M/mm3 (3.60-5.2); RDW 18.6 % (11.6-15.6); WHITE BLOOD COUNT 3.2 K/mm3 (4.0-10.0)
[2017-11-19] MEDS: levETIRAcetam 500 MG TABLET (FP) PO SCH ×2 (10:29→23:19)
[2017-11-19] MEDS: LISINOPRIL 10 MG TABLET (FP) PO SCH (10:29)
[2017-11-19 10:42] LABS: ALBUMIN 2.9 g/dl (3.4-5.0); ANION GAP 8 (8-16); BLOOD UREA NITROGEN 16 mg/dL (7-18); CALCIUM 8.5 mg/dL (8.5-10.1); CHLORIDE 110 mmol/L (98-107); CO2 26 mmol/L (21-32); GLUCOSE,RANDOM 103 mg/dL (74-106); SGOT/AST 143 U/L (15-37); SGPT/ALT 32 U/L (12-78); SODIUM 144 mmol/L (136-145)
[2017-11-19 10:44] LABS: ALK PHOS 186 U/L (45-117); BILIRUBIN,TOTAL 5.7 mg/dL (0.2-1.0); TOT PROT 7.4 g/dl (6.4-8.2)
[2017-11-19 10:45] LABS: PLATELET COUNT 33 K/MM3 (134-434)
--- NOTE | 2017-11-19 14:13 | PN ---
S CIWA - CIWA Score Nausea/Vomitin Muscle Tremors: 3 Anxiety: 3 Agitation: 3 Paroxysmal Sweats: 1-Minimal Palms Moist Orientation: 0-Oriented Tacttile Disturbances: 1-Very Mild Itch/Numbness Auditory Disturbances: 1-Very Mild Visual Disturbances: 0-None Headache: 2-Mild CIWA-Ar Total Score: 17 BHS Progress Note (SOAP) Subjective: alert,irritable,anxious,interrupted sleep,tremor Objective: 11/19/17 14:08 Vital Signs Temperature 97.1 F L 11/19/17 10:06 Pulse Rate 105 H 11/19/17 10:06 Respiratory Rate 16 11/19/17 10:06 Blood Pressure 157/74 11/19/17 10:06 O2 Sat by Pulse Oximetry (%) ekg nsr 75/min qt/qtc 428/477 no chest pain,no sob,no dizziness Laboratory Last Values WBC 3.2 K/mm3 (4.0-10.0) L 11/19/17 06:00 RBC 2.61 M/mm3 (3.60-5.2) L 11/19/17 06:00 Hgb 9.3 GM/dL (10.7-15.3) L 11/19/17 06:00 Hct 27.4 % (32.4-45.2) L D 11/19/17 06:00 MCV 104.8 fl (80-96) H 11/19/17 06:00 MCH 35.5 pg (25.7-33.7) H 11/19/17 06:00 MCHC 33.9 g/dl (32.0-36.0) 11/19/17 06:00 RDW 18.6 % (11.6-15.6) H 11/19/17 06:00 Plt Count 33 K/MM3 (134-434) L* 11/19/17 06:00 MPV 10.5 fl (7.5-11.1) D 11/19/17 06:00 Sodium 144 mmol/L (136-145) 11/19/17 06:00 Potassium 4.0 mmol/L (3.5-5.1) 11/19/17 06:00 Chloride 110 mmol/L (98-107) H 11/19/17 06:00 Carbon Dioxide 26 mmol/L (21-32) 11/19/17 06:00 Anion Gap 8 (8-16) 11/19/17 06:00 BUN 16 mg/dL (7-18) 11/19/17 06:00 Creatinine 1.0 mg/dL (0.55-1.02) 11/19/17 06:00 Creat Clearance w eGFR 59.43 (>60) 11/19/17 06:00 Random Glucose 103 mg/dL (74-106) 11/19/17 06:00 Calcium 8.5 mg/dL (8.5-10.1) 11/19/17 06:00 Total Bilirubin 5.7 mg/dL (0.2-1.0) H 11/19/17 06:00 AST 143 U/L (15-37) H 11/19/17 06:00 ALT 32 U/L (12-78) 11/19/17 06:00 Alkaline Phosphatase 186 U/L (45-117) H 11/19/17 06:00 Total Protein 7.4 g/dl (6.4-8.2) 11/19/17 06:00 Albumin 2.9 g/dl (3.4-5.0) L 11/19/17 06:00 HIV 1&2 Antibody Screen Negative 11/19/17 08:30 HIV P24 Antigen Negative 11/19/17 08:30 Assessment: 11/19/17 14:11 withdrawal symptom Plan: continue detox,pancytopenia probably related to alcohol,will repeat cbc in am, close monitoring
--- NOTE | 2017-11-19 18:40 | CONSULT ---
[facility] Psychiatric Consult - Data Date of interview: 11/19/17 Admission source: [facility] Identifying data: Approached at bedside for the psychiatric interview.Patient refused.Nursing staff is made aware.
[2017-11-19 18:51] LABS: URINE APPEARANCE CLOUDY; URINE BILIRUBIN NEGATIVE (<2.0 mg/dL); URINE COLOR AMBER; URINE GLUCOSE (UA) NEGATIVE (NEGATIVE); URINE KETONE NEGATIVE (NEGATIVE); URINE NITRITE NEGATIVE (NEGATIVE); URINE PROTEIN NEGATIVE (NEGATIVE); URINE UROBILINOGEN 4.0 E.U/dl mg/dL (0.2-1.0)
[2017-11-19 18:59] LABS: URINE LEUK ESTERASE 3+ (NEGATIVE)
[2017-11-19 19:04] LABS: EPI CELLS RARE /HPF (FEW); URINE BACTERIA RARE /hpf (NONE SEEN); URINE MUCUS RARE
[2017-11-19] MEDS: THIAMINE HCL 100 MG TABLET (FP) PO SCH (23:20)
[2017-11-20] MEDS: GABAPENTIN 300 MG CAPSULE (FP) PO SCH ×3 (05:58→22:07)
[2017-11-20] MEDS: chlordiazePOXIDE HCL 25 MG CAPSULE PO SCH ×2 (05:58→10:39)
[2017-11-20 10:22] LABS: BASO % 0.9 % (0-2.0); EOS % 2.3 % (0-4.5); HEMATOCRIT 29.3 % (32.4-45.2); HEMOGLOBIN 9.9 GM/dL (10.7-15.3); LYMPH % 17.9 % (8-40); MCH 35.3 pg (25.7-33.7); MCHC 33.7 g/dl (32.0-36.0); MEAN CELL VOLUME 104.7 fl (80-96); MEAN PLT VOLUME 9.9 fl (7.5-11.1); MONO % 16.1 % (3.8-10.2); NEUT % 62.8 % (42.8-82.8); PLATELET COUNT 37 K/MM3 (134-434); WHITE BLOOD COUNT 3.9 K/mm3 (4.0-10.0)
[2017-11-20 10:34] LABS: CHLORIDE 103 mmol/L (98-107); POTASSIUM 4.2 mmol/L (3.5-5.1); SODIUM 137 mmol/L (136-145)
[2017-11-20] MEDS: PRENATAL VITAMINS W/ FOLIC ACID TABLET (FP) PO SCH (10:39)
[2017-11-20] MEDS: LISINOPRIL 10 MG TABLET (FP) PO SCH (10:39)
[2017-11-20] MEDS: levETIRAcetam 500 MG TABLET (FP) PO SCH ×2 (10:39→22:07)
[2017-11-20] MEDS: CARVEDILOL 25 MG TABLET (FP) PO SCH (10:39)
[2017-11-20 10:40] LABS: INR 1.66 (0.83-1.09); PROTHROMBIN TIME (PATIENT) 18.8 SEC (9.7-13.0)
[2017-11-20 10:46] LABS: ALBUMIN 2.9 g/dl (3.4-5.0); ALK PHOS 270 U/L (45-117); ANION GAP 10 (8-16); BILIRUBIN,TOTAL 5.8 mg/dL (0.2-1.0); BLOOD UREA NITROGEN 15 mg/dL (7-18); CALCIUM 8.9 mg/dL (8.5-10.1); CO2 24 mmol/L (21-32); CREATININE 0.8 mg/dL (0.55-1.02); GLUCOSE,RANDOM 138 mg/dL (74-106); SGOT/AST 153 U/L (15-37); SGPT/ALT 34 U/L (12-78); TOT PROT 7.3 g/dl (6.4-8.2)
--- NOTE | 2017-11-20 13:29 | PN ---
S CIWA - CIWA Score Nausea/Vomitin-No Nausea/No Vomiting Muscle Tremors: 3 Anxiety: 3 Agitation: 3 Paroxysmal Sweats: 1-Minimal Palms Moist Orientation: 1-Uncertain about Date Tacttile Disturbances: 1-Very Mild Itch/Numbness Auditory Disturbances: 0-None Visual Disturbances: 0-None Headache: 0-None Present CIWA-Ar Total Score: 12 BHS Progress Note (SOAP) Subjective: disoriented to time, sweat tremor restlessness anxiety Objective: 11/20/17 13:26 Vital Signs Temperature 97.7 F 11/20/17 10:55 Pulse Rate 85 11/20/17 10:55 Respiratory Rate 20 11/20/17 10:55 Blood Pressure 115/82 11/20/17 10:55 O2 Sat by Pulse Oximetry (%) Laboratory Last Values WBC 3.9 K/mm3 (4.0-10.0) L 11/20/17 07:40 RBC 2.80 M/mm3 (3.60-5.2) L 11/20/17 07:40 Hgb 9.9 GM/dL (10.7-15.3) L 11/20/17 07:40 Hct 29.3 % (32.4-45.2) L 11/20/17 07:40 MCV 104.7 fl (80-96) H 11/20/17 07:40 MCH 35.3 pg (25.7-33.7) H 11/20/17 07:40 MCHC 33.7 g/dl (32.0-36.0) 11/20/17 07:40 RDW 18.0 % (11.6-15.6) H 11/20/17 07:40 Plt Count 37 K/MM3 (134-434) L 11/20/17 07:40 MPV 9.9 fl (7.5-11.1) 11/20/17 07:40 Absolute Neuts (auto) 2.4 # 11/20/17 07:40 Neutrophils % 62.8 % (42.8-82.8) 11/20/17 07:40 Lymphocytes % 17.9 % (8-40) D 11/20/17 07:40 Monocytes % 16.1 % (3.8-10.2) H 11/20/17 07:40 Eosinophils % 2.3 % (0-4.5) 11/20/17 07:40 Basophils % 0.9 % (0-2.0) 11/20/17 07:40 Nucleated RBC % 1 % (0-0) H 11/20/17 07:40 PT with INR 18.80 SEC (9.7-13.0) H 11/20/17 07:40 INR 1.66 (0.83-1.09) H 11/20/17 07:40 Sodium 137 mmol/L (136-145) 11/20/17 07:40 Potassium 4.2 mmol/L (3.5-5.1) 11/20/17 07:40 Chloride 103 mmol/L (98-107) 11/20/17 07:40 Carbon Dioxide 24 mmol/L (21-32) 11/20/17 07:40 Anion Gap 10 (8-16) 11/20/17 07:40 BUN 15 mg/dL (7-18) 11/20/17 07:40 Creatinine 0.8 mg/dL (0.55-1.02) 11/20/17 07:40 Creat Clearance w eGFR > 60 (>60) 11/20/17 07:40 Random Glucose 138 mg/dL (74-106) H 11/20/17 07:40 Calcium 8.9 mg/dL (8.5-10.1) 11/20/17 07:40 Total Bilirubin 5.8 mg/dL (0.2-1.0) H 11/20/17 07:40 AST 153 U/L (15-37) H 11/20/17 07:40 ALT 34 U/L (12-78) 11/20/17 07:40 Alkaline Phosphatase 270 U/L (45-117) H D 11/20/17 07:40 Total Protein 7.3 g/dl (6.4-8.2) 11/20/17 07:40 Albumin 2.9 g/dl (3.4-5.0) L 11/20/17 07:40 Urine Color [place] 11/19/17 Unknown Urine Appearance Cloudy 11/19/17 Unknown Urine pH 7.0 (5.0-8.0) 11/19/17 Unknown Ur Specific [place] 1.012 (1.001-1.035) 11/19/17 Unknown Urine Protein Negative (NEGATIVE) 11/19/17 Unknown Urine Glucose (UA) Negative (NEGATIVE) 11/19/17 Unknown Urine Ketones Negative (NEGATIVE) 11/19/17 Unknown Urine Blood 1+ (NEGATIVE) H 11/19/17 Unknown Urine Nitrite Negative (NEGATIVE) 11/19/17 Unknown Urine Bilirubin Negative (<2.0 mg/dL) 11/19/17 Unknown Urine Urobilinogen 4.0 e.u/dl mg/dL (0.2-1.0) H 11/19/17 Unknown Ur Leukocyte Esterase 3+ (NEGATIVE) H 11/19/17 Unknown Urine WBC (Auto) 173 /hpf (3-5) 11/19/17 Unknown Urine RBC (Auto) 4 /hpf (0-3) 11/19/17 Unknown Ur Epithelial Cells Rare /HPF (FEW) 11/19/17 Unknown Urine Bacteria Rare /hpf (NONE SEEN) 11/19/17 Unknown Urine Mucus Rare 11/19/17 Unknown RPR Titer Nonreactive (NONREACTIVE) 11/19/17 06:00 HIV 1&2 Antibody Screen Negative 11/19/17 08:30 HIV P24 Antigen Negative 11/19/17 08:30 lab noted Assessment: 11/20/17 13:28 withdrawal sx Plan: continue detox
[2017-11-20] MEDS: chlordiazePOXIDE 5 MG CAPSULE PO SCH ×2 (17:15→22:39)
[2017-11-20] MEDS: THIAMINE HCL 100 MG TABLET (FP) PO SCH (22:07)
--- NOTE | 2017-11-21 05:38 | PN ---
[facility] Progress Note Note: I was called by the nurse to examine patient who fell in the bathroom. Patient reports that she lost her balance and fell on her right side in the bathroom. She denies pain or discomfort at this time. No injury noted or reported. Fall was unwitnessed and fall protocol # 1 initiated. Patient is to transferred to ER for further evaluation but she refused. Patient signed the refusal against medical advice form. Risks and consequences of her action explained to her and patient verbalized understanding. Vital Signs Temperature 98.6 F 11/21/17 05:13 Pulse Rate 81 11/21/17 05:13 Respiratory Rate 18 11/21/17 05:13 Blood Pressure 108/65 11/21/17 05:13 O2 Sat by Pulse Oximetry (%) Laboratory Last Values WBC 3.9 K/mm3 (4.0-10.0) L 11/20/17 07:40 RBC 2.80 M/mm3 (3.60-5.2) L 11/20/17 07:40 Hgb 9.9 GM/dL (10.7-15.3) L 11/20/17 07:40 Hct 29.3 % (32.4-45.2) L 11/20/17 07:40 MCV 104.7 fl (80-96) H 11/20/17 07:40 MCH 35.3 pg (25.7-33.7) H 11/20/17 07:40 MCHC 33.7 g/dl (32.0-36.0) 11/20/17 07:40 RDW 18.0 % (11.6-15.6) H 11/20/17 07:40 Plt Count 37 K/MM3 (134-434) L 11/20/17 07:40 MPV 9.9 fl (7.5-11.1) 11/20/17 07:40 Absolute Neuts (auto) 2.4 # 11/20/17 07:40 Neutrophils % 62.8 % (42.8-82.8) 11/20/17 07:40 Lymphocytes % 17.9 % (8-40) D 11/20/17 07:40 Monocytes % 16.1 % (3.8-10.2) H 11/20/17 07:40 Eosinophils % 2.3 % (0-4.5) 11/20/17 07:40 Basophils % 0.9 % (0-2.0) 11/20/17 07:40 Nucleated RBC % 1 % (0-0) H 11/20/17 07:40 PT with INR 18.80 SEC (9.7-13.0) H 11/20/17 07:40 INR 1.66 (0.83-1.09) H 11/20/17 07:40 Sodium 137 mmol/L (136-145) 11/20/17 07:40 Potassium 4.2 mmol/L (3.5-5.1) 11/20/17 07:40 Chloride 103 mmol/L (98-107) 11/20/17 07:40 Carbon Dioxide 24 mmol/L (21-32) 11/20/17 07:40 Anion Gap 10 (8-16) 11/20/17 07:40 BUN 15 mg/dL (7-18) 11/20/17 07:40 Creatinine 0.8 mg/dL (0.55-1.02) 11/20/17 07:40 Creat Clearance w eGFR > 60 (>60) 11/20/17 07:40 Random Glucose 138 mg/dL (74-106) H 11/20/17 07:40 Calcium 8.9 mg/dL (8.5-10.1) 11/20/17 07:40 Total Bilirubin 5.8 mg/dL (0.2-1.0) H 11/20/17 07:40 AST 153 U/L (15-37) H 11/20/17 07:40 ALT 34 U/L (12-78) 11/20/17 07:40 Alkaline Phosphatase 270 U/L (45-117) H D 11/20/17 07:40 Total Protein 7.3 g/dl (6.4-8.2) 11/20/17 07:40 Albumin 2.9 g/dl (3.4-5.0) L 11/20/17 07:40 Urine Color [place] 11/19/17 Unknown Urine Appearance Cloudy 11/19/17 Unknown Urine pH 7.0 (5.0-8.0) 11/19/17 Unknown Ur Specific [place] 1.012 (1.001-1.035) 11/19/17 Unknown Urine Protein Negative (NEGATIVE) 11/19/17 Unknown Urine Glucose (UA) Negative (NEGATIVE) 11/19/17 Unknown Urine Ketones Negative (NEGATIVE) 11/19/17 Unknown Urine Blood 1+ (NEGATIVE) H 11/19/17 Unknown Urine Nitrite Negative (NEGATIVE) 11/19/17 Unknown Urine Bilirubin Negative (<2.0 mg/dL) 11/19/17 Unknown Urine Urobilinogen 4.0 e.u/dl mg/dL (0.2-1.0) H 11/19/17 Unknown Ur Leukocyte Esterase 3+ (NEGATIVE) H 11/19/17 Unknown Urine WBC (Auto) 173 /hpf (3-5) 11/19/17 Unknown Urine RBC (Auto) 4 /hpf (0-3) 11/19/17 Unknown Ur Epithelial Cells Rare /HPF (FEW) 11/19/17 Unknown Urine Bacteria Rare /hpf (NONE SEEN) 11/19/17 Unknown Urine Mucus Rare 11/19/17 Unknown RPR Titer Nonreactive (NONREACTIVE) 11/19/17 06:00 HIV 1&2 Antibody Screen Negative 11/19/17 08:30 HIV P24 Antigen Negative 11/19/17 08:30 Action:Evaluate in ER Patient cane use a cane in the unit Fall and safety precaution Ibuprofen 400mg prn as needed
[2017-11-21] MEDS: GABAPENTIN 300 MG CAPSULE (FP) PO SCH ×3 (06:45→22:32)
[2017-11-21] MEDS: chlordiazePOXIDE 5 MG CAPSULE PO SCH ×2 (06:47→10:19)
[2017-11-21] MEDS: levETIRAcetam 500 MG TABLET (FP) PO SCH ×2 (10:18→22:32)
[2017-11-21] MEDS: PRENATAL VITAMINS W/ FOLIC ACID TABLET (FP) PO SCH (10:18)
[2017-11-21] MEDS: CARVEDILOL 25 MG TABLET (FP) PO SCH (10:18)
[2017-11-21] MEDS: LISINOPRIL 10 MG TABLET (FP) PO SCH (10:19)
--- NOTE | 2017-11-21 13:17 | PN ---
S Progress Note (SOAP) Subjective: alert,irritable,anxious,interrupted sleep,interrupted sleep Objective: 11/21/17 13:16 Vital Signs Temperature 97.5 F L 11/21/17 10:00 Pulse Rate 85 11/21/17 10:00 Respiratory Rate 16 11/21/17 10:00 Blood Pressure 104/60 11/21/17 10:00 O2 Sat by Pulse Oximetry (%) Assessment: 11/21/17 13:16 withdrawal symptom Plan: continue detox,discharge in am
--- NOTE | 2017-11-21 13:25 | PN ---
[facility] Progress Note Note: Laboratory Results - last 24 hr 11/21/17 07:00 Ammonia 68.0 H Laboratory Last Values WBC 3.9 K/mm3 (4.0-10.0) L 11/20/17 07:40 RBC 2.80 M/mm3 (3.60-5.2) L 11/20/17 07:40 Hgb 9.9 GM/dL (10.7-15.3) L 11/20/17 07:40 Hct 29.3 % (32.4-45.2) L 11/20/17 07:40 MCV 104.7 fl (80-96) H 11/20/17 07:40 MCH 35.3 pg (25.7-33.7) H 11/20/17 07:40 MCHC 33.7 g/dl (32.0-36.0) 11/20/17 07:40 RDW 18.0 % (11.6-15.6) H 11/20/17 07:40 Plt Count 37 K/MM3 (134-434) L 11/20/17 07:40 MPV 9.9 fl (7.5-11.1) 11/20/17 07:40 Absolute Neuts (auto) 2.4 # 11/20/17 07:40 Neutrophils % 62.8 % (42.8-82.8) 11/20/17 07:40 Lymphocytes % 17.9 % (8-40) D 11/20/17 07:40 Monocytes % 16.1 % (3.8-10.2) H 11/20/17 07:40 Eosinophils % 2.3 % (0-4.5) 11/20/17 07:40 Basophils % 0.9 % (0-2.0) 11/20/17 07:40 Nucleated RBC % 1 % (0-0) H 11/20/17 07:40 PT with INR 18.80 SEC (9.7-13.0) H 11/20/17 07:40 INR 1.66 (0.83-1.09) H 11/20/17 07:40 Sodium 137 mmol/L (136-145) 11/20/17 07:40 Potassium 4.2 mmol/L (3.5-5.1) 11/20/17 07:40 Chloride 103 mmol/L (98-107) 11/20/17 07:40 Carbon Dioxide 24 mmol/L (21-32) 11/20/17 07:40 Anion Gap 10 (8-16) 11/20/17 07:40 BUN 15 mg/dL (7-18) 11/20/17 07:40 Creatinine 0.8 mg/dL (0.55-1.02) 11/20/17 07:40 Creat Clearance w eGFR > 60 (>60) 11/20/17 07:40 Random Glucose 138 mg/dL (74-106) H 11/20/17 07:40 Calcium 8.9 mg/dL (8.5-10.1) 11/20/17 07:40 Total Bilirubin 5.8 mg/dL (0.2-1.0) H 11/20/17 07:40 AST 153 U/L (15-37) H 11/20/17 07:40 ALT 34 U/L (12-78) 11/20/17 07:40 Alkaline Phosphatase 270 U/L (45-117) H D 11/20/17 07:40 Ammonia 68.0 umol/L (11-32) H 11/21/17 07:00 Total Protein 7.3 g/dl (6.4-8.2) 11/20/17 07:40 Albumin 2.9 g/dl (3.4-5.0) L 11/20/17 07:40 Urine Color [place] 11/19/17 Unknown Urine Appearance Cloudy 11/19/17 Unknown Urine pH 7.0 (5.0-8.0) 11/19/17 Unknown Ur Specific [place] 1.012 (1.001-1.035) 11/19/17 Unknown Urine Protein Negative (NEGATIVE) 11/19/17 Unknown Urine Glucose (UA) Negative (NEGATIVE) 11/19/17 Unknown Urine Ketones Negative (NEGATIVE) 11/19/17 Unknown Urine Blood 1+ (NEGATIVE) H 11/19/17 Unknown Urine Nitrite Negative (NEGATIVE) 11/19/17 Unknown Urine Bilirubin Negative (<2.0 mg/dL) 11/19/17 Unknown Urine Urobilinogen 4.0 e.u/dl mg/dL (0.2-1.0) H 11/19/17 Unknown Ur Leukocyte Esterase 3+ (NEGATIVE) H 11/19/17 Unknown Urine WBC (Auto) 173 /hpf (3-5) 11/19/17 Unknown Urine RBC (Auto) 4 /hpf (0-3) 11/19/17 Unknown Ur Epithelial Cells Rare /HPF (FEW) 11/19/17 Unknown Urine Bacteria Rare /hpf (NONE SEEN) 11/19/17 Unknown Urine Mucus Rare 11/19/17 Unknown RPR Titer Nonreactive (NONREACTIVE) 11/19/17 06:00 HIV 1&2 Antibody Screen Negative 11/19/17 08:30 HIV P24 Antigen Negative 11/19/17 08:30 high ammonia level uti lactulose 20 grams po tid d/c tylenol levaquin 500 mgs po daily for 7 days discharge in am
[2017-11-21] MEDS: LACTULOSE 20 GM/30 ML UDC (FOR ORAL USE ONLY) PO SCH ×2 (14:39→22:32)
[2017-11-21] MEDS: chlordiazePOXIDE HCL 10 MG CAPSULE PO SCH ×2 (17:17→22:32)
[2017-11-21] MEDS: THIAMINE HCL 100 MG TABLET (FP) PO SCH (22:32)
[2017-11-22] MEDS: LACTULOSE 20 GM/30 ML UDC (FOR ORAL USE ONLY) PO SCH (06:59)
[2017-11-22] MEDS: GABAPENTIN 300 MG CAPSULE (FP) PO SCH (06:59)
[2017-11-22] MEDS: chlordiazePOXIDE HCL 10 MG CAPSULE PO SCH ×2 (07:00→12:17)
[2017-11-22 07:47] VITALS: BP 114/70; PULSE 82; TEMP 98.2
[2017-11-22] MEDS: PRENATAL VITAMINS W/ FOLIC ACID TABLET (FP) PO SCH (09:38)
[2017-11-22] MEDS: levETIRAcetam 500 MG TABLET (FP) PO SCH (09:39)
[2017-11-22] MEDS: LISINOPRIL 10 MG TABLET (FP) PO SCH (09:39)
--- NOTE | 2017-11-22 09:41 | DS ---
[facility] Detox Discharge Summary Admission Date: 11/18/17 Discharge Date: 11/22/17 - History Present History: Alcohol Dependence Additional Comments: follow up with after care program as arrangement ,follow up with primary care provider for multiple medical problem pancytopenia,uti,high ammonia level as appointment or to er if emergency medical problem Pertinent Past History: asthma hypertension hepatitis c seizure bipolar disorder pancytopenia high ammonia leveluti cane ambulation - Physical Exam Results Vital Signs: Vital Signs Temperature 98.2 F 11/22/17 07:46 Pulse Rate 82 11/22/17 07:46 Respiratory Rate 18 11/22/17 07:46 Blood Pressure 114/70 11/22/17 07:46 O2 Sat by Pulse Oximetry (%) Pertinent Admission Physical Exam Findings: withdrawal signs and symptom - Treatment Hospital Course: Detox Protocol Followed, Detoxed Safely, Responded well, Discharged Condition Good Patient has Accepted a Rehab Referral to: declined - Medication Discharge Medications: Ambulatory Orders Carvedilol [Coreg -] 12.5 mg PO DAILY #60 tablet 03/28/14 Gabapentin [Neurontin -] 300 mg PO TID #90 capsule 03/29/14 Risperidone [Risperdal -] 1 mg PO HS #30 tablet 03/29/14 traZODone HCL [Desyrel -] 150 mg PO HS #30 tablet 03/29/14 Lisinopril [Zestril] 10 mg PO DAILY 10/01/15 Quetiapine Fumarate [Seroquel] 150 mg PO HS 10/01/15 levETIRAcetam [Keppra -] 500 mg PO BID #60 tablet 08/14/16 - Diagnosis (1) Alcohol dependence with uncomplicated withdrawal Current Visit: No Status: Chronic (2) Pancytopenia Current Visit: No Status: Acute (3) Anemia Current Visit: No Status: Chronic Qualifiers: Anemia type: unspecified type Qualified Code(s): D64.9 - Anemia, unspecified (4) Essential hypertension Current Visit: No Status: Chronic (5) Hepatitis C Current Visit: No Status: Chronic Qualifiers: Viral hepatitis chronicity: chronic Hepatic coma status: without hepatic coma Qualified Code(s): B18.2 - Chronic viral hepatitis C (6) History of seizure Current Visit: No Status: Chronic (7) Increased ammonia level Current Visit: Yes Status: Acute (8) UTI (urinary tract infection) Current Visit: Yes Status: Acute
[2017-11-22] MEDS ORDERED: CARVEDILOL 12.5 MG TABLET (FP) PO SCH (10:00)
== END 2017-11-22 11:58 | disposition home or self-care (01) | DRG 775 ==
LOC: YASAS 09:47 → Y6N 16:35
PROVIDERS: ADMIT Surgery; ATTEND Surgery
PROC: HZ2ZZZZ Detoxification Services for Substance Abuse Treatment (ICD-10-PCS; principal; 2017-11-18)
DX: F10.230 Alcohol dependence with withdrawal, uncomplicated (principal); F31.89 Other bipolar disorder; N39.0 Urinary tract infection, site not specified; I10 Essential (primary) hypertension; D64.9 Anemia, unspecified; D61.818 Other pancytopenia; B18.2 Chronic viral hepatitis C; E72.20 Disorder of urea cycle metabolism, unspecified; K74.60 Unspecified cirrhosis of liver; Z86.69 Personal history of other diseases of the nervous system and sense organs; W18.39XA Other fall on same level, initial encounter; Y93.89 Activity, other specified; Y92.231 Patient bathroom in hospital as the place of occurrence of the external cause
CPT/HCPCS: 36415; 80053; 81003; 81015; 82140; 85025; 85027; 85610; 86593; 87389; 93005; 93010

== ENCOUNTER 2017-12-28 09:50 | Inpatient (IN) | payer OTHER ==
[2017-12-28 12:15] VITALS: BMI 29.6
--- NOTE | 2017-12-28 14:01 | HP ---
CIWA Score - CIWA Score Nausea/Vomitin-Mild Nausea/No Vomiting Muscle Tremors: 4-Moderate,w/Arms Extend Anxiety: 4-Mod. Anxious/Guarded Agitation: 3 Paroxysmal Sweats: No Perspiration Orientation: 1-Uncertain about Date Tacttile Disturbances: 3-Moderate Itch/Numb/Burn Auditory Disturbances: 0-None Visual Disturbances: 0-None Headache: 0-None Present CIWA-Ar Total Score: 16 Admission ROS BHS - HPI Chief Complaint: alcohol withdrawal sx patient went to [facility] discharged 12/28/17 to patient [facility] [place] for alcohol detox hair piece unable to remove upon admission Allergies/Adverse Reactions: Allergies Allergy/AdvReac Type Severity Reaction Status Date / Time No Known Allergies Allergy Verified 12/28/17 12:49 History of Present Illness: 47 years old female with long history of alcohol dependent has hypertension congestive heart failure hepatitis c x treated seizure x 2 years denies head trauma asthma gerd itchy skin and bipolar is admitted to [facility] sobriety 6 months Exam Limitations: No Limitations - Ebola screening Have you traveled outside of the country in the last 21 days: No Have you had contact with anyone from an Ebola affected area: No Have you been sick,other than usual withdrawal symptoms: No Do you have a fever: No - Review of Systems Constitutional: Changes in sleep, Weight Stable EENT: reports: No Symptoms Reported Respiratory: reports: SOB with Exertion Cardiac: reports: Edema (legs) GI: reports: Nausea, Poor Fluid Intake, Indigestion, Abdominal cramping : reports: No Symptoms Reported Musculoskeletal: reports: Joint Swelling (ankles) Integumentary: reports: Pruritus Neuro: reports: Seizure (last seizure 2015), Tremors Hematology: reports: Blood Clots (by h istory no current treatment) Psychiatric: reports: Judgement Intact, Orientated x3, Anxious, Depressed Other Systems: Reviewed and Negative Patient History - Patient Medical History Hx Anemia: Yes (no medication) Hx Asthma: Yes Hx Chronic Obstructive Pulmonary Disease (COPD): No Hx Cancer: No Hx Cardiac Disorders: No Hx Congestive Heart Failure: Yes Hx Hypertension: Yes Hx Hypercholesterolemia: Yes Hx Pacemaker: No HX Cerebrovascular Accident: No Hx Seizures: Yes (last episode was in 2016) Hx Dementia: No Hx Diabetes: No Hx Gastrointestinal Disorders: Yes Hx Liver Disease: Yes (CIRRHOSHIS ) Hx Genitourinary Disorders: No Hx Sexually Transmitted Disorders: No Hx Renal Disease (ESRD): No Hx Thyroid Disease: No Hx Human Immunodeficiency Virus (HIV): No Hx Hepatitis C: Yes Hx Depression: No Hx Suicide Attempt: No Hx Bipolar Disorder: Yes Hx Schizophrenia: No - Patient Surgical History Past Surgical History: No Hx Neurologic Surgery: No Hx Cataract Extraction: No Hx Cardiac Surgery: No Hx Lung Surgery: No Hx Breast Surgery: No Hx Breast Biopsy: No Hx Abdominal Surgery: No Hx Appendectomy: No Hx Cholecystectomy: No Hx Genitourinary Surgery: No Hx Section: No Hx Orthopedic Surgery: No Hx Hysterectomy: No - PPD History Previous Implant?: Yes Documented Results: Negative w/proof Implanted On Prior [facility] Admission?: Yes Date: 11/20/17 Results: 0 mm PPD to be Administered?: No - Reproductive History Patient is a Female of Child Bearing Age (11 -55 yrs old): Yes Last Menstrual Period: 12/29/15 Patient : No - Smoking Cessation Smoking history: Never smoked Have you smoked in the past 12 months: Yes Aproximately how many cigarettes per day: 0 Hx Chewing Tobacco Use: No Initiated information on smoking cessation: No - Substance & Tx. History Hx Alcohol Use: Yes Hx Substance Use: No Substance Use Type: Alcohol Hx Substance Use Treatment: Yes (11/2017 [facility] - Substances Abused Alcohol-Baileys cream Route: Oral Frequency: 3-6 times per week Amount used: 5 bottles Age of first use: 24 Date of Last Use: 12/27/17 Family Disease History - Family Disease History Family Disease History: Diabetes: Mother, Heart Disease: Mother, CA: Mother, Other: Father ( depression), Son (ALCOHOL DEPENDENT ) Admission Physical Exam S - Vital Signs Vital Signs: Vital Signs - 24 hr 12/28/17 12:08 Temperature 97.2 F L Pulse Rate 95 H Respiratory 18 Rate Blood Pressure 129/80 - Physical General Appearance: Yes: Appropriately Dressed, Mild Distress, Alcohol on Breath , Tremorous, Irritable, Sweating, Anxious HEENTM: Yes: Hearing grossly Normal, Normocephalic, Normal Voice Respiratory: Yes: Chest Non-Tender, Lungs Clear, Normal Breath Sounds, No Respiratory Distress, No Accessory Muscle Use Neck: Yes: Supple, Trachea in good position Breast: Yes: Breasts Symetrical, No Discharge Cardiology: Yes: Regular Rhythm, S1, S2, Edema (legs), Tachycardia Abdominal: Yes: Normal Bowel Sounds, Non Tender, Flat, Soft, Other (cirrhosis of the liver) Genitourinary: Yes: Within Normal Limits Back: Yes: Within Normal Limits, Normal Inspection Musculoskeletal: Yes: full range of Motion, Gait Steady Extremities: Yes: Normal Inspection, Normal Range of Motion, Non-Tender, Tremors , Swelling (legs) Neurological: Yes: Fully Oriented, Alert, Motor Strength 5/5, Normal Response, Depressed Affect Integumentary: Yes: Warm, Pitting Edema (both legs), Other Lymphatic: Yes: Within Normal Limits - Diagnostic (1) Pancytopenia Current Visit: Yes Status: Chronic (2) Asthma Current Visit: Yes Status: Chronic Qualifiers: Asthma severity: mild Asthma persistence: intermittent Asthma complication type: with status asthmaticus Qualified Code(s): J45.22 - Mild intermittent asthma with status asthmaticus (3) Bipolar 1 disorder Current Visit: Yes Status: Suspected (4) CHF (congestive heart failure) Current Visit: Yes Status: Chronic (5) Essential hypertension Current Visit: Yes Status: Chronic (6) Hepatitis C Current Visit: Yes Status: Resolved Qualifiers: Viral hepatitis chronicity: chronic Hepatic coma status: without hepatic coma Qualified Code(s): B18.2 - Chronic viral hepatitis C (7) Hypercholesterolemia Current Visit: Yes Status: Chronic (8) Seizure Current Visit: Yes Status: Chronic Qualifiers: Convulsion type: unspecified Qualified Code(s): R56.9 - Unspecified convulsions (9) Cirrhosis of liver Current Visit: Yes Status: Chronic Qualifiers: Hepatic cirrhosis type: alcoholic cirrhosis Ascites presence: without ascites Qualified Code(s): K70.30 - Alcoholic cirrhosis of liver without ascites (10) Alcohol dependence with uncomplicated withdrawal Current Visit: Yes Status: Acute Cleared for Admission S - Detox or Rehab [facility] Level of Care: Medically Managed Detox Regimen/Protocol: Librium [facility] Breath Alcohol Content Breath Alcohol Content: 0.123 Urine Pregancy Test - Result Urine Test Results: Negative- NO Line Present Urine Drug Screen - Results Drug Screen Negative: No Urine Drug Screen Results: BZO-Benzodiazepines
[2017-12-28] MEDS ORDERED: LOPERAMIDE HCL 2 MG CAPSULE PO PRN (14:23)
[2017-12-28] MEDS ORDERED: MENTHOL/PHENOL 1 EACH UD MM PRN (14:23)
[2017-12-28] MEDS ORDERED: guaiFENesin/D-METHORPHAN HB 10 ML UNIT-DOSE CUPS PO PRN (14:23)
[2017-12-28] MEDS ORDERED: MAGNESIUM HYDROX 2400MG/30ML ORAL SUSPENSION 30 ML CUP PO PRN (14:23)
[2017-12-28] MEDS ORDERED: MAGNESIUM CITRATE 300 ML BOTTLE PO PRN (14:23)
[2017-12-28] MEDS ORDERED: IBUPROFEN 400 MG TABLET (FP) PO PRN (14:23)
[2017-12-28] MEDS ORDERED: hydrOXYzine PAMOATE 50 MG CAPSULE (FP) PO PRN (14:23)
[2017-12-28] MEDS ORDERED: MAG HYDROX/AL HYDROX/SIMETH 30 ML UNIT-DOSE CUP PO PRN (14:23)
[2017-12-28] MEDS ORDERED: P-EPHED 60MG/TRIPROLIDI 2.5MG TABLET PO PRN (14:23)
[2017-12-28] MEDS ORDERED: chlordiazePOXIDE HCL 25 MG CAPSULE PO PRN (14:23)
[2017-12-28] MEDS ORDERED: ALBUTEROL SO4 0.083% IH SOL 2.5 MG/3 ML VIAL.NEB. NEB PRN (14:27)
[2017-12-28] MEDS ORDERED: ALBUTEROL SO4 8 GM HFA INHALER IH PRN (14:28)
[2017-12-28] MEDS: LORATADINE 10 MG TABLET PO SCH (15:42)
--- NOTE | 2017-12-28 15:58 | EKG ---
Test Reason : Blood Pressure : / mmHG Vent. Rate : 074 BPM Atrial Rate : 074 BPM P-R Int : 146 ms QRS Dur : 088 ms QT Int : 442 ms P-R-T Axes : 056 037 031 degrees QTc Int : 490 ms NORMAL SINUS RHYTHM PROLONGED QT ABNORMAL ECG WHEN COMPARED WITH ECG OF 18-NOV-2017 17:49, NONSPECIFIC T WAVE ABNORMALITY HAS REPLACED INVERTED T WAVES IN INFERIOR LEADS NONSPECIFIC T WAVE ABNORMALITY NO LONGER EVIDENT IN LATERAL LEADS Confirmed by DALLAS PICKARD MD ([id number]) on 12/28/2017 3:58:31 PM Referred By: Confirmed By:DALLAS PICKARD MD
--- NOTE | 2017-12-28 17:25 | CONSULT ---
[facility] Psychiatric Consult - Data Date of interview: 12/28/17 Admission source: [facility] Identifying data: Patient is a 47 year old single female, mother of three, unemployed, domiciled, and is supported by public assistance. This is one of multiple admissions for patient. Pt. admitted to detox for alcohol dependence. Substance Abuse History: Smoking Cessation. Smoking history: Never smoked. Have you smoked in the past 12 months: Yes. Aproximately how many cigarettes per day: 0. Hx Chewing Tobacco Use: No. Initiated information on smoking cessation: No. - Substance & Tx. History. Hx Alcohol Use: Yes. Hx Substance Use: No. Substance Use Type: Alcohol. Hx Substance Use Treatment: Yes (11/2017 [facility] - Substances Abused. Alcohol-Baileys cream. Route: Oral. Frequency: 3-6 times per week. Amount used: 5 bottles. Age of first use: 24. Date of Last Use: 12/27/17 Medical History: Anemia, Asthma, seizures (last episode in 2015), Cirrhosis Psychiatric History: Patient denies h/o psychiatric hospitalization. States her most recent Outpatient psychiatric services was approximately three years ago. States she was diagnosed with bipolar disorder and was prescribed seroquel. Pt. appears to be internally preoccupied although denies h/o auditory hallucinations. Pt. unable to provide a cohesive psychiatric history. Patient's thought process is currently mildly disorganized although is calm and cooperative. As per records patient has multiple admissions to detox/rehab and has one documented psychiatric hospitalization at [facility] in 2003 for "voices and seeing shadows" in which she was treated with risperdal. Pt. has also been treated with seroquel during previous admissions. As per pharmacy claims, a prescription of seroquel 200mg daily was electronically sent to patient's pharmacy on 05/05. As per records has accepted risperdal in detox and rehab. Patient is unrelaible and is nonadherent to OPD. Pt. denies h/o suicide attempt. Physical/Sexual Abuse/Trauma History: denies. Mental Status Exam - Mental Status Exam Alert and Oriented to: Time, Place, Person Cognitive Function: Good Patient Appearance: Well Groomed Mood: Euthymic Affect: Mood Congruent Patient Behavior: Fatigued, Cooperative Speech Pattern: Appropriate Voice Loudness: Normal Thought Process: Thought Blocking, Disorganized Thought Disorder: Present (internally preoccupied) Hallucinations: Denies Suicidal Ideation: Denies Homicidal Ideation: Denies Insight/Judgement: Poor Sleep: Poorly Appetite: Fair Muscle strength/Tone: Normal Gait/Station: Normal Psychiatric Findings - Problem List ([place] 1, 2,3) (1) Alcohol dependence with uncomplicated withdrawal Current Visit: Yes Status: Acute (2) Schizoaffective disorder Current Visit: No Status: Suspected (3) Substance induced mood disorder Current Visit: Yes Status: Acute (4) Mood disorder Current Visit: Yes Status: Chronic - Initial Treatment Plan Initial Treatment Plan: Psychoeducation provided. Detoxification in progress. Will order Seroquel 50mg qhs (pt. mildly sedated therefore lower dose of seroquel dose ordered). Pt. refusing to accept risperdal, instead requesting seroquel. Benefits and side effects discussed. Verbal consent given.
[2017-12-28] MEDS: chlordiazePOXIDE HCL 25 MG CAPSULE PO SCH ×2 (17:28→22:38)
[2017-12-28] MEDS: CALAMINE 8% TOPICAL LOTION 177 ML BOTTLE TP SCH ×2 (17:30→22:37)
[2017-12-28] MEDS ORDERED: MELATONIN 5 MG TABLETS PO PRN (22:00)
[2017-12-28] MEDS ORDERED: QUEtiapine FUMARATE 100 MG TABLET (FP) PO SCH (22:00)
[2017-12-28] MEDS: THIAMINE HCL 100 MG TABLET (FP) PO SCH (22:38)
[2017-12-28] MEDS: RANITIDINE HCL 150 MG TABLET (FP) PO SCH (22:38)
[2017-12-28] MEDS: levETIRAcetam 500 MG TABLET (FP) PO SCH (22:38)
[2017-12-28] MEDS: GABAPENTIN 300 MG CAPSULE (FP) PO SCH (22:38)
[2017-12-28] MEDS: QUEtiapine FUMARATE 50 MG TABLET PO SCH (22:38)
[2017-12-29 00:06] LABS: URINE APPEARANCE CLEAR; URINE BILIRUBIN NEGATIVE (<2.0 mg/dL); URINE COLOR DKYELLOW; URINE GLUCOSE (UA) NEGATIVE (NEGATIVE); URINE KETONE NEGATIVE (NEGATIVE); URINE LEUK ESTERASE NEGATIVE (NEGATIVE); URINE NITRITE NEGATIVE (NEGATIVE); URINE PROTEIN NEGATIVE (NEGATIVE); URINE UROBILINOGEN 4.0 E.U/dl mg/dL (0.2-1.0)
[2017-12-29] MEDS: FUROSEMIDE 20 MG TABLET (FP) PO SCH (05:54)
[2017-12-29] MEDS: chlordiazePOXIDE HCL 25 MG CAPSULE PO SCH ×4 (05:54→22:22)
[2017-12-29] MEDS: GABAPENTIN 300 MG CAPSULE (FP) PO SCH ×3 (05:54→22:22)
[2017-12-29] MEDS ORDERED: LISINOPRIL 10 MG TABLET (FP) PO SCH (10:00)
[2017-12-29 10:44] LABS: HEMOGLOBIN 8.6 GM/dL (10.7-15.3); MCH 34.3 pg (25.7-33.7); MCHC 33.1 g/dl (32.0-36.0); MEAN CELL VOLUME 103.9 fl (80-96); MEAN PLT VOLUME 9.3 fl (7.5-11.1); PLATELET COUNT 41 K/MM3 (134-434); RBC 2.51 M/mm3 (3.60-5.2); RDW 16.5 % (11.6-15.6); WHITE BLOOD COUNT 2.7 K/mm3 (4.0-10.0)
[2017-12-29 10:49] LABS: ALBUMIN 2.7 g/dl (3.4-5.0); ANION GAP 9 MMOL/L (8-16); BLOOD UREA NITROGEN 18 mg/dL (7-18); CALCIUM 8.5 mg/dL (8.5-10.1); CHLORIDE 113 mmol/L (98-107); CO2 23 mmol/L (21-32); GLUCOSE,RANDOM 123 mg/dL (74-106); SODIUM 145 mmol/L (136-145)
[2017-12-29 10:53] LABS: ALK PHOS 397 U/L (45-117); BILIRUBIN,TOTAL 3.5 mg/dL (0.2-1.0); CREATININE 0.8 mg/dL (0.55-1.02); SGOT/AST 79 U/L (15-37); SGPT/ALT 27 U/L (13-61); TOT PROT 6.8 g/dl (6.4-8.2)
[2017-12-29] MEDS: LORATADINE 10 MG TABLET PO SCH (11:17)
[2017-12-29] MEDS: CALAMINE 8% TOPICAL LOTION 177 ML BOTTLE TP SCH ×4 (11:18→22:23)
[2017-12-29] MEDS: levETIRAcetam 500 MG TABLET (FP) PO SCH ×2 (11:18→22:22)
[2017-12-29] MEDS: RANITIDINE HCL 150 MG TABLET (FP) PO SCH ×2 (11:18→22:23)
[2017-12-29] MEDS: PRENATAL VITAMINS W/ FOLIC ACID TABLET (FP) PO SCH (11:18)
[2017-12-29] MEDS: LISINOPRIL 10 MG TABLET (FP) PO SCH (11:18)
--- NOTE | 2017-12-29 13:49 | PN ---
[facility] CIWA - CIWA Score Nausea/Vomitin-Mild Nausea/No Vomiting Muscle Tremors: 3 Anxiety: 2 Agitation: 3 Paroxysmal Sweats: 1-Minimal Palms Moist Orientation: 0-Oriented Tacttile Disturbances: 2-Mild Itch/Numbness/Burn Auditory Disturbances: 0-None Visual Disturbances: 0-None Headache: 0-None Present CIWA-Ar Total Score: 12 BHS Progress Note (SOAP) Subjective: Vital Signs Temperature 97.9 F 12/29/17 09:12 Pulse Rate 93 H 12/29/17 09:12 Respiratory Rate 19 12/29/17 09:12 Blood Pressure 111/80 12/29/17 09:12 O2 Sat by Pulse Oximetry (%) Laboratory Last Values WBC 2.7 K/mm3 (4.0-10.0) L 12/29/17 05:50 RBC 2.51 M/mm3 (3.60-5.2) L 12/29/17 05:50 Hgb 8.6 GM/dL (10.7-15.3) L 12/29/17 05:50 Hct 26.0 % (32.4-45.2) L 12/29/17 05:50 MCV 103.9 fl (80-96) H 12/29/17 05:50 MCH 34.3 pg (25.7-33.7) H 12/29/17 05:50 MCHC 33.1 g/dl (32.0-36.0) 12/29/17 05:50 RDW 16.5 % (11.6-15.6) H 12/29/17 05:50 Plt Count 41 K/MM3 (134-434) L 12/29/17 05:50 MPV 9.3 fl (7.5-11.1) 12/29/17 05:50 Sodium 145 mmol/L (136-145) 12/29/17 05:50 Potassium 4.0 mmol/L (3.5-5.1) 12/29/17 05:50 Chloride 113 mmol/L (98-107) H 12/29/17 05:50 Carbon Dioxide 23 mmol/L (21-32) 12/29/17 05:50 Anion Gap 9 MMOL/L (8-16) 12/29/17 05:50 BUN 18 mg/dL (7-18) 12/29/17 05:50 Creatinine 0.8 mg/dL (0.55-1.02) 12/29/17 05:50 Creat Clearance w eGFR > 60 (>60) 12/29/17 05:50 Random Glucose 123 mg/dL (74-106) H 12/29/17 05:50 Calcium 8.5 mg/dL (8.5-10.1) 12/29/17 05:50 Total Bilirubin 3.5 mg/dL (0.2-1.0) H 12/29/17 05:50 AST 79 U/L (15-37) H 12/29/17 05:50 ALT 27 U/L (13-61) 12/29/17 05:50 Alkaline Phosphatase 397 U/L (45-117) H 12/29/17 05:50 Ammonia 36.19 umol/L (11-32) H 12/28/17 14:00 Total Protein 6.8 g/dl (6.4-8.2) 12/29/17 05:50 Albumin 2.7 g/dl (3.4-5.0) L 12/29/17 05:50 Urine Color Dkyellow 12/28/17 Unknown Urine Appearance Clear 12/28/17 Unknown Urine pH 6.0 (5.0-8.0) 12/28/17 Unknown Ur Specific [place] 1.015 (1.001-1.035) 12/28/17 Unknown Urine Protein Negative (NEGATIVE) 12/28/17 Unknown Urine Glucose (UA) Negative (NEGATIVE) 12/28/17 Unknown Urine Ketones Negative (NEGATIVE) 12/28/17 Unknown Urine Blood Negative (NEGATIVE) 12/28/17 Unknown Urine Nitrite Negative (NEGATIVE) 12/28/17 Unknown Urine Bilirubin Negative (<2.0 mg/dL) 12/28/17 Unknown Urine Urobilinogen 4.0 e.u/dl mg/dL (0.2-1.0) H 12/28/17 Unknown Ur Leukocyte Esterase Negative (NEGATIVE) 12/28/17 Unknown RPR Titer Nonreactive (NONREACTIVE) 12/29/17 05:50 lab noted repeat cbc begin lactulose Objective: 12/29/17 13:50 sweat tremor ichy skin resetlessness trouble concentration Assessment: 12/29/17 13:50 withdrawal sx Plan: continue detox
[2017-12-29] MEDS: LACTULOSE 20 GM/30 ML UDC (FOR ORAL USE ONLY) PO SCH (14:48)
[2017-12-29] MEDS: THIAMINE HCL 100 MG TABLET (FP) PO SCH (22:22)
[2017-12-29] MEDS: QUEtiapine FUMARATE 50 MG TABLET PO SCH (22:22)
[2017-12-30] MEDS: chlordiazePOXIDE HCL 25 MG CAPSULE PO SCH ×2 (05:19→10:43)
[2017-12-30] MEDS: GABAPENTIN 300 MG CAPSULE (FP) PO SCH ×3 (05:19→22:51)
[2017-12-30] MEDS: FUROSEMIDE 20 MG TABLET (FP) PO SCH (05:19)
[2017-12-30] MEDS: RANITIDINE HCL 150 MG TABLET (FP) PO SCH ×2 (10:43→22:49)
[2017-12-30] MEDS: levETIRAcetam 500 MG TABLET (FP) PO SCH ×2 (10:43→22:49)
[2017-12-30] MEDS: PRENATAL VITAMINS W/ FOLIC ACID TABLET (FP) PO SCH (10:43)
[2017-12-30] MEDS: LISINOPRIL 10 MG TABLET (FP) PO SCH (10:43)
[2017-12-30] MEDS: LORATADINE 10 MG TABLET PO SCH (10:43)
[2017-12-30] MEDS: CALAMINE 8% TOPICAL LOTION 177 ML BOTTLE TP SCH ×4 (10:44→22:50)
[2017-12-30] MEDS: LACTULOSE 20 GM/30 ML UDC (FOR ORAL USE ONLY) PO SCH (10:44)
[2017-12-30 11:08] LABS: HEMATOCRIT 27.6 % (32.4-45.2); HEMOGLOBIN 9.2 GM/dL (10.7-15.3); MCH 34.5 pg (25.7-33.7); MCHC 33.4 g/dl (32.0-36.0); MEAN CELL VOLUME 103.1 fl (80-96); MEAN PLT VOLUME 8.8 fl (7.5-11.1); PLATELET COUNT 41 K/MM3 (134-434); RBC 2.68 M/mm3 (3.60-5.2); RDW 16.5 % (11.6-15.6); WHITE BLOOD COUNT 3.6 K/mm3 (4.0-10.0)
--- NOTE | 2017-12-30 11:08 | PN ---
S CIWA - CIWA Score Nausea/Vomitin-No Nausea/No Vomiting Muscle Tremors: 4-Moderate,w/Arms Extend Anxiety: 3 Agitation: 3 Paroxysmal Sweats: 2 Orientation: 0-Oriented Tacttile Disturbances: 0-None Auditory Disturbances: 0-None Visual Disturbances: 0-None Headache: 0-None Present CIWA-Ar Total Score: 12 BHS Progress Note (SOAP) Subjective: sweats shakes interrupted sleep body aches i need a cane Objective: 12/30/17 11:08 Vital Signs Temperature 97.9 F 12/30/17 10:06 Pulse Rate 98 H 12/30/17 10:06 Respiratory Rate 16 12/30/17 10:06 Blood Pressure 100/65 12/30/17 10:06 O2 Sat by Pulse Oximetry (%) Laboratory Tests 12/28/17 12/28/17 12/29/17 14:00 Unknown 05:50 WBC 2.7 L RBC 2.51 L Hgb 8.6 L Hct 26.0 L MCV 103.9 H MCH 34.3 H MCHC 33.1 RDW 16.5 H Plt Count 41 L MPV 9.3 Sodium Potassium Chloride Carbon Dioxide Anion Gap BUN Creatinine Creat Clearance w eGFR Random Glucose Calcium Total Bilirubin AST ALT Alkaline Phosphatase Ammonia 36.19 H Total Protein Albumin Urine Color Dkyellow Urine Appearance Clear Urine pH 6.0 Ur Specific [place] 1.015 Urine Protein Negative Urine Glucose (UA) Negative Urine Ketones Negative Urine Blood Negative Urine Nitrite Negative Urine Bilirubin Negative Urine Urobilinogen 4.0 e.u/dl H Ur Leukocyte Esterase Negative RPR Titer 12/29/17 12/29/17 05:50 05:50 WBC RBC Hgb Hct MCV MCH MCHC RDW Plt Count MPV Sodium 145 Potassium 4.0 Chloride 113 H Carbon Dioxide 23 Anion Gap 9 BUN 18 Creatinine 0.8 Creat Clearance w eGFR > 60 Random Glucose 123 H Calcium 8.5 Total Bilirubin 3.5 H AST 79 H ALT 27 Alkaline Phosphatase 397 H Ammonia Total Protein 6.8 Albumin 2.7 L Urine Color Urine Appearance Urine pH Ur Specific [place] Urine Protein Urine Glucose (UA) Urine Ketones Urine Blood Urine Nitrite Urine Bilirubin Urine Urobilinogen Ur Leukocyte Esterase RPR Titer Nonreactive repeated labs pending [id number] ambulating no acute distress cane ordered Assessment: 12/30/17 11:11 withdrawal sx Plan: continue detox increase fluids
[2017-12-30] MEDS: chlordiazePOXIDE 5 MG CAPSULE PO SCH ×2 (17:22→22:48)
[2017-12-30] MEDS: QUEtiapine FUMARATE 50 MG TABLET PO SCH (22:49)
[2017-12-30] MEDS: THIAMINE HCL 100 MG TABLET (FP) PO SCH (22:49)
[2017-12-31] MEDS: FUROSEMIDE 20 MG TABLET (FP) PO SCH (05:58)
[2017-12-31] MEDS: GABAPENTIN 300 MG CAPSULE (FP) PO SCH ×3 (05:58→22:18)
[2017-12-31] MEDS: chlordiazePOXIDE 5 MG CAPSULE PO SCH ×2 (05:58→10:47)
[2017-12-31] MEDS: PRENATAL VITAMINS W/ FOLIC ACID TABLET (FP) PO SCH (10:47)
[2017-12-31] MEDS: levETIRAcetam 500 MG TABLET (FP) PO SCH ×2 (10:47→22:18)
[2017-12-31] MEDS: RANITIDINE HCL 150 MG TABLET (FP) PO SCH ×2 (10:47→22:18)
[2017-12-31] MEDS: LORATADINE 10 MG TABLET PO SCH (10:47)
[2017-12-31] MEDS: LISINOPRIL 10 MG TABLET (FP) PO SCH (10:48)
[2017-12-31] MEDS: LACTULOSE 20 GM/30 ML UDC (FOR ORAL USE ONLY) PO SCH (10:48)
[2017-12-31] MEDS: CALAMINE 8% TOPICAL LOTION 177 ML BOTTLE TP SCH ×4 (10:48→22:18)
--- NOTE | 2017-12-31 16:28 | PN ---
S Progress Note (SOAP) Subjective: pt states going home tomorrow, requesting eye drops for itchy eye and ensure O: pt with anemia, h/o anemia and pancytopenia h/o cirrhosis Vital Signs - 24 hr 12/30/17 12/30/17 12/31/17 18:24 22:34 00:30 Temperature 98.2 F 98.2 F Pulse Rate 100 H 113 H Respiratory 18 20 18 Rate Blood Pressure 125/76 117/50 12/31/17 12/31/17 12/31/17 03:30 07:57 09:00 Temperature 97.7 F 97.7 F Pulse Rate 97 H 110 H Respiratory 16 20 16 Rate Blood Pressure 121/85 96/66 12/31/17 13:54 Temperature 98.1 F Pulse Rate 101 H Respiratory 16 Rate Blood Pressure 126/81 Laboratory Tests 12/28/17 12/28/17 12/29/17 14:00 Unknown 05:50 WBC 2.7 L RBC 2.51 L Hgb 8.6 L Hct 26.0 L MCV 103.9 H MCH 34.3 H MCHC 33.1 RDW 16.5 H Plt Count 41 L MPV 9.3 Sodium Potassium Chloride Carbon Dioxide Anion Gap BUN Creatinine Creat Clearance w eGFR Random Glucose Calcium Total Bilirubin AST ALT Alkaline Phosphatase Ammonia 36.19 H Total Protein Albumin Urine Color Dkyellow Urine Appearance Clear Urine pH 6.0 Ur Specific [place] 1.015 Urine Protein Negative Urine Glucose (UA) Negative Urine Ketones Negative Urine Blood Negative Urine Nitrite Negative Urine Bilirubin Negative Urine Urobilinogen 4.0 e.u/dl H Ur Leukocyte Esterase Negative RPR Titer 12/29/17 12/29/17 12/30/17 05:50 05:50 07:20 WBC 3.6 L RBC 2.68 L Hgb 9.2 L Hct 27.6 L MCV 103.1 H MCH 34.5 H MCHC 33.4 RDW 16.5 H Plt Count 41 L MPV 8.8 Sodium 145 Potassium 4.0 Chloride 113 H Carbon Dioxide 23 Anion Gap 9 BUN 18 Creatinine 0.8 Creat Clearance w eGFR > 60 Random Glucose 123 H Calcium 8.5 Total Bilirubin 3.5 H AST 79 H ALT 27 Alkaline Phosphatase 397 H Ammonia Total Protein 6.8 Albumin 2.7 L Urine Color Urine Appearance Urine pH Ur Specific [place] Urine Protein Urine Glucose (UA) Urine Ketones Urine Blood Urine Nitrite Urine Bilirubin Urine Urobilinogen Ur Leukocyte Esterase RPR Titer Nonreactive ass/plan: continue detox protocol pt to leave tomorrow
[2017-12-31] MEDS: chlordiazePOXIDE HCL 10 MG CAPSULE PO SCH ×2 (17:49→22:18)
[2017-12-31] MEDS: THIAMINE HCL 100 MG TABLET (FP) PO SCH (22:18)
[2017-12-31] MEDS: QUEtiapine FUMARATE 50 MG TABLET PO SCH (22:18)
[2018-01-01] MEDS: FUROSEMIDE 20 MG TABLET (FP) PO SCH (05:35)
[2018-01-01] MEDS: GABAPENTIN 300 MG CAPSULE (FP) PO SCH (05:35)
[2018-01-01] MEDS: chlordiazePOXIDE HCL 10 MG CAPSULE PO SCH ×2 (05:35→10:03)
--- NOTE | 2018-01-01 08:47 | DS ---
[facility] Detox Discharge Summary Admission Date: 12/28/17 Discharge Date: 01/01/18 - History Present History: Alcohol Dependence Additional Comments: 47 years old female admitted on 12/28/17 for alcohol withdrawal sx completed alcohol detox regimen tolerated well denies alcohol withdrawal sx alert oriented x 3 no acute distress aftercare [facility] for medical mental and addiction issues - Physical Exam Results Vital Signs: Vital Signs Temperature 96.1 F L 01/01/18 07:31 Pulse Rate 95 H 01/01/18 07:31 Respiratory Rate 20 01/01/18 07:31 Blood Pressure 120/75 01/01/18 07:31 O2 Sat by Pulse Oximetry (%) Pertinent Admission Physical Exam Findings: alcohol withdrawal sx Vital Signs Temperature 97.2 F L 01/01/18 09:38 Pulse Rate 99 H 01/01/18 09:38 Respiratory Rate 20 01/01/18 09:38 Blood Pressure 114/70 01/01/18 09:38 O2 Sat by Pulse Oximetry (%) Laboratory Last Values WBC 3.6 K/mm3 (4.0-10.0) L 12/30/17 07:20 RBC 2.68 M/mm3 (3.60-5.2) L 12/30/17 07:20 Hgb 9.2 GM/dL (10.7-15.3) L 12/30/17 07:20 Hct 27.6 % (32.4-45.2) L 12/30/17 07:20 MCV 103.1 fl (80-96) H 12/30/17 07:20 MCH 34.5 pg (25.7-33.7) H 12/30/17 07:20 MCHC 33.4 g/dl (32.0-36.0) 12/30/17 07:20 RDW 16.5 % (11.6-15.6) H 12/30/17 07:20 Plt Count 41 K/MM3 (134-434) L 12/30/17 07:20 MPV 8.8 fl (7.5-11.1) 12/30/17 07:20 Sodium 145 mmol/L (136-145) 12/29/17 05:50 Potassium 4.0 mmol/L (3.5-5.1) 12/29/17 05:50 Chloride 113 mmol/L (98-107) H 12/29/17 05:50 Carbon Dioxide 23 mmol/L (21-32) 12/29/17 05:50 Anion Gap 9 MMOL/L (8-16) 12/29/17 05:50 BUN 18 mg/dL (7-18) 12/29/17 05:50 Creatinine 0.8 mg/dL (0.55-1.02) 12/29/17 05:50 Creat Clearance w eGFR > 60 (>60) 12/29/17 05:50 Random Glucose 123 mg/dL (74-106) H 12/29/17 05:50 Calcium 8.5 mg/dL (8.5-10.1) 12/29/17 05:50 Total Bilirubin 3.5 mg/dL (0.2-1.0) H 12/29/17 05:50 AST 79 U/L (15-37) H 12/29/17 05:50 ALT 27 U/L (13-61) 12/29/17 05:50 Alkaline Phosphatase 397 U/L (45-117) H 12/29/17 05:50 Ammonia 36.19 umol/L (11-32) H 12/28/17 14:00 Total Protein 6.8 g/dl (6.4-8.2) 12/29/17 05:50 Albumin 2.7 g/dl (3.4-5.0) L 12/29/17 05:50 Urine Color Dkyellow 12/28/17 Unknown Urine Appearance Clear 12/28/17 Unknown Urine pH 6.0 (5.0-8.0) 12/28/17 Unknown Ur Specific [place] 1.015 (1.001-1.035) 12/28/17 Unknown Urine Protein Negative (NEGATIVE) 12/28/17 Unknown Urine Glucose (UA) Negative (NEGATIVE) 12/28/17 Unknown Urine Ketones Negative (NEGATIVE) 12/28/17 Unknown Urine Blood Negative (NEGATIVE) 12/28/17 Unknown Urine Nitrite Negative (NEGATIVE) 12/28/17 Unknown Urine Bilirubin Negative (<2.0 mg/dL) 12/28/17 Unknown Urine Urobilinogen 4.0 e.u/dl mg/dL (0.2-1.0) H 12/28/17 Unknown Ur Leukocyte Esterase Negative (NEGATIVE) 12/28/17 Unknown RPR Titer Nonreactive (NONREACTIVE) 12/29/17 05:50 lab noted - Treatment Hospital Course: Detox Protocol Followed, Detoxed Safely, Responded well, Discharged Condition Good, Rehab Referral Accepted Patient has Accepted a Rehab Referral to: [facility] - Medication Discharge Medications: Ambulatory Orders Risperidone [Risperdal -] 1 mg PO HS #30 tablet 03/29/14 Quetiapine Fumarate [Seroquel] 150 mg PO HS 10/01/15 Albuterol Sulfate Inhaler - [Ventolin HFA Inhaler -] 2 puff IH Q4H PRN #1 inhaler 01/01/18 Carvedilol [Coreg -] 12.5 mg PO DAILY #60 tablet 01/01/18 Gabapentin [Neurontin -] 300 mg PO TID #90 capsule 01/01/18 Lactulose (Oral Use) [Cephulac -] 20 gm PO DAILY #30 udc 01/01/18 Lisinopril [Prinivil] 10 mg PO DAILY #30 tablet 01/01/18 Lisinopril [Prinivil] 10 mg PO DAILY #30 tablet 01/01/18 levETIRAcetam [Keppra -] 500 mg PO BID #60 tablet 01/01/18 - Diagnosis (1) Pancytopenia Status: Chronic (2) Asthma Status: Chronic Qualifiers: Asthma severity: mild Asthma persistence: intermittent Asthma complication type: with status asthmaticus Qualified Code(s): J45.22 - Mild intermittent asthma with status asthmaticus (3) Bipolar 1 disorder Status: Suspected (4) CHF (congestive heart failure) Status: Chronic (5) Essential hypertension Status: Chronic (6) Hepatitis C Status: Resolved Qualifiers: Viral hepatitis chronicity: chronic Hepatic coma status: without hepatic coma Qualified Code(s): B18.2 - Chronic viral hepatitis C (7) Hypercholesterolemia Status: Chronic (8) Seizure Status: Chronic Qualifiers: Convulsion type: unspecified Qualified Code(s): R56.9 - Unspecified convulsions (9) Cirrhosis of liver Status: Chronic Qualifiers: Hepatic cirrhosis type: alcoholic cirrhosis Ascites presence: without ascites Qualified Code(s): K70.30 - Alcoholic cirrhosis of liver without ascites (10) Alcohol dependence with uncomplicated withdrawal Status: Acute - AMA Did Patient Leave Against Medical Advice: No
[2018-01-01] MEDS ORDERED: NICOTINE POLACRILEX 4 MG GUM BUC PRN (09:17)
[2018-01-01 09:39] VITALS: BP 114/70; PULSE 99; TEMP 97.2
[2018-01-01] MEDS ORDERED: CYANOCOBALAMIN 1,000 MCG TABLET (FP) PO SCH (10:00)
[2018-01-01] MEDS: PRENATAL VITAMINS W/ FOLIC ACID TABLET (FP) PO SCH (10:01)
[2018-01-01] MEDS: LORATADINE 10 MG TABLET PO SCH (10:02)
[2018-01-01] MEDS: RANITIDINE HCL 150 MG TABLET (FP) PO SCH (10:02)
[2018-01-01] MEDS: levETIRAcetam 500 MG TABLET (FP) PO SCH (10:02)
[2018-01-01] MEDS: LISINOPRIL 10 MG TABLET (FP) PO SCH (10:03)
[2018-01-01] MEDS: LACTULOSE 20 GM/30 ML UDC (FOR ORAL USE ONLY) PO SCH (10:03)
[2018-01-01] MEDS: CALAMINE 8% TOPICAL LOTION 177 ML BOTTLE TP SCH (10:03)
== END 2018-01-01 12:01 | disposition home or self-care (01) | DRG 775 ==
LOC: YASAS 09:50 → Y6N 14:56
PROC: HZ2ZZZZ Detoxification Services for Substance Abuse Treatment (ICD-10-PCS; principal; 2017-12-28)
DX: F10.230 Alcohol dependence with withdrawal, uncomplicated (principal); F31.9 Bipolar disorder, unspecified; F25.9 Schizoaffective disorder, unspecified; F19.24 Other psychoactive substance dependence with psychoactive substance-induced mood disorder; I10 Essential (primary) hypertension; I50.9 Heart failure, unspecified; K70.30 Alcoholic cirrhosis of liver without ascites; J45.22 Mild intermittent asthma with status asthmaticus; B18.2 Chronic viral hepatitis C; E78.00 Pure hypercholesterolemia, unspecified; L29.8 Other pruritus; D61.818 Other pancytopenia; Z86.69 Personal history of other diseases of the nervous system and sense organs
CPT/HCPCS: 36415; 80053; 81003; 82140; 85027; 86593; 93005; 93010

== ENCOUNTER 2018-03-10 17:20 | Inpatient (IN) | payer OTHER ==
[2018-03-10 19:27] VITALS: BMI 32.1
--- NOTE | 2018-03-10 19:50 | HP ---
CIWA Score Nausea/Vomitin-No Nausea/No Vomiting Muscle Tremors: 4-Moderate,w/Arms Extend Anxiety: 0-No Anxiety, at Ease Agitation: 0-Normal Activity Paroxysmal Sweats: No Perspiration Orientation: 0-Oriented Tacttile Disturbances: 3-Moderate Itch/Numb/Burn Auditory Disturbances: 0-None Visual Disturbances: 0-None Headache: 0-None Present CIWA-Ar Total Score: 7 - Admission Criteria OASAS Guidelines: Admission for Medically Managed Detox: Requires at least one of the followin. CIWA greater than 12 2. Seizures within the past 24 hours 3. Delirium tremens within the past 24 hours 4. Hallucinations within the past 24 hours 5. Acute intervention needed for co occurring medical disorder 6. Acute intervention needed for co occurring psychiatric disorder 7. Severe withdrawal that cannot be handled at a lower level of care (continued vomiting, continued diarrhea, abnormal vital signs) requiring intravenous medication and/or fluids 8. Admission ROS BHS - HPI Allergies/Adverse Reactions: Allergies Allergy/AdvReac Type Severity Reaction Status Date / Time No Known Allergies Allergy Verified 03/10/18 20:04 History of Present Illness: patient here requesting 3-4 nips/day, first age of use 24, latest use - varies story , + VERONICA 0.107 , reports after some questioning that she had a drink today , reports had a seizure 2 years ago . Denies SI / HI . Prior detox - 2014 , longest sobriety 2 weeks. States was discharged from [facility] yesterday. utox + bzo veronica 0.107 tobacco : denies PMhx : HTN, liver cirrhosis , seizure d/o ,COPD PSH : denies Psych : bipolar d/o ,mood d/o, depression LMP 2 years ago. Exam Limitations: Clinical Condition, Other (patient appears confused at times regarding dates and ETOH use) - Ebola screening Have you traveled outside of the country in the last 21 days: No Have you been sick,other than usual withdrawal symptoms: No - Review of Systems Constitutional: See HPI EENT: reports: Other (glasses- lost) Respiratory: reports: No Symptoms reported Cardiac: reports: No Symptoms Reported GI: reports: Constipated : reports: Frequency Musculoskeletal: reports: Back Pain (chronic LBP " from me scratching ") Integumentary: reports: Dryness Neuro: reports: Seizure Psychiatric: reports: Orientated x3, Agitated, Anxious Patient History - Patient Medical History Hx Anemia: Yes (no medication) Hx Asthma: Yes Hx Chronic Obstructive Pulmonary Disease (COPD): No Hx Cancer: No Hx Cardiac Disorders: No Hx Congestive Heart Failure: Yes Hx Hypertension: Yes Hx Hypercholesterolemia: Yes Hx Pacemaker: No HX Cerebrovascular Accident: No Hx Seizures: Yes (last episode was in 2016) Hx Dementia: No Hx Diabetes: No Hx Gastrointestinal Disorders: Yes Hx Liver Disease: Yes (CIRRHOSHIS ) Hx Genitourinary Disorders: No Hx Sexually Transmitted Disorders: No Hx Renal Disease (ESRD): No Hx Thyroid Disease: No Hx Human Immunodeficiency Virus (HIV): No Hx Hepatitis C: Yes Hx Depression: No Hx Suicide Attempt: No Hx Bipolar Disorder: Yes Hx Schizophrenia: No - Patient Surgical History Past Surgical History: No Hx Neurologic Surgery: No Hx Cataract Extraction: No Hx Cardiac Surgery: No Hx Lung Surgery: No Hx Breast Surgery: No Hx Breast Biopsy: No Hx Abdominal Surgery: No Hx Appendectomy: No Hx Cholecystectomy: No Hx Genitourinary Surgery: No Hx Section: No Hx Orthopedic Surgery: No Hx Hysterectomy: No Anesthesia Reaction: No - PPD History Date: 11/20/17 Results: 0 mm - Reproductive History Last Menstrual Period: 12/29/15 - Smoking Cessation Smoking history: Never smoked Have you smoked in the past 12 months: Yes Aproximately how many cigarettes per day: 0 Hx Chewing Tobacco Use: No - Substances Abused Alcohol Route: Oral Frequency: Daily Amount used: LIQUOR- 1 PINT, BEER- 1 SIX PACK Age of first use: 24 Date of Last Use: 03/10/18 Family Disease History - Family Disease History Family Disease History: Diabetes: Mother, Heart Disease: Mother, CA: Mother, Other: Father ( depression), Son (ALCOHOL DEPENDENT ) Admission Physical Exam S - Vital Signs Vital Signs: Vital Signs - 24 hr 03/10/18 19:25 Temperature 97.3 F L Pulse Rate 104 H Respiratory 20 Rate Blood Pressure 128/71 - Physical General Appearance: Yes: Disheveled, Moderate Distress, Alcohol on Breath, Intoxicated HEENTM: Yes: EOMI, Hearing grossly Normal, Normocephalic, Normal Voice, Pharynx Normal, Scleral Ictenus L Respiratory: Yes: Chest Non-Tender, Lungs Clear, Normal Breath Sounds Neck: Yes: No masses,lesions,Nodules, Trachea in good position Cardiology: Yes: Regular Rhythm, Regular Rate, S1, S2, Tachycardia Abdominal: Yes: Normal Bowel Sounds, Soft, Protuberent Genitourinary: Yes: Frequency Back: Yes: Normal Inspection Musculoskeletal: Yes: full range of Motion, Other (staggering gait) Extremities: Yes: Pedal Edema (bilateral pedal edema, pitting , states was at [facility], describes procedure " checking her legs ") Neurological: Yes: Other (left wrist palsy - 0 dorsiflexion, states has had x 2 weeks, went to [facility]) Integumentary: Yes: Dry, Other (excoriations from scratching self) - Diagnostic (1) Alcohol intoxication Current Visit: Yes Status: Acute Qualifiers: Complication of substance-induced condition: with unspecified complication Qualified Code(s): F10.929 - Alcohol use, unspecified with intoxication, unspecified (2) Cirrhosis of liver Current Visit: No Status: Chronic Qualifiers: Hepatic cirrhosis type: alcoholic cirrhosis Ascites presence: without ascites Qualified Code(s): K70.30 - Alcoholic cirrhosis of liver without ascites (3) Essential hypertension Current Visit: No Status: Chronic BHS Breath Alcohol Content Breath Alcohol Content: 0.107 Urine Pregancy Test - Result Urine Test Results: Negative- NO Line Present Urine Drug Screen - Results Drug Screen Negative: No Urine Drug Screen Results: BZO-Benzodiazepines
[2018-03-10] MEDS ORDERED: MENTHOL/PHENOL 1 EACH UD MM PRN (20:03)
[2018-03-10] MEDS ORDERED: MAGNESIUM HYDROX 2400MG/30ML ORAL SUSPENSION 30 ML CUP PO PRN (20:03)
[2018-03-10] MEDS ORDERED: P-EPHED 60MG/TRIPROLIDI 2.5MG TABLET PO PRN (20:03)
[2018-03-10] MEDS ORDERED: diazePAM 5 MG TABLET PO PRN (20:03)
[2018-03-10] MEDS ORDERED: diazePAM 5 MG TABLET PO ONE (20:03)
[2018-03-10] MEDS ORDERED: MAGNESIUM CITRATE 300 ML BOTTLE PO PRN (20:03)
[2018-03-10] MEDS ORDERED: IBUPROFEN 400 MG TABLET (FP) PO PRN (20:03)
[2018-03-10] MEDS ORDERED: guaiFENesin/D-METHORPHAN HB 10 ML UNIT-DOSE CUPS PO PRN (20:03)
[2018-03-10] MEDS ORDERED: MAG HYDROX/AL HYDROX/SIMETH 30 ML UNIT-DOSE CUP PO PRN (20:03)
[2018-03-10] MEDS ORDERED: ALBUTEROL SO4 8 GM HFA INHALER IH PRN (20:05)
[2018-03-10] MEDS ORDERED: AMMONIUM LACTATE 12% LOTION 225 GM BOTTLE TP PRN (20:10)
[2018-03-10] MEDS ORDERED: ALBUTEROL SO4 0.083% IH SOL 2.5 MG/3 ML VIAL.NEB. NEB PRN (20:25)
[2018-03-10] MEDS: SPIRONOLACTONE 25 MG TABLET (FP) PO SCH (21:48)
[2018-03-10] MEDS: diazePAM 5 MG TABLET PO SCH (21:48)
[2018-03-10] MEDS: levETIRAcetam 500 MG TABLET (FP) PO SCH (21:49)
[2018-03-10] MEDS: LACTULOSE 20 GM/30 ML UDC (FOR ORAL USE ONLY) PO SCH (21:49)
[2018-03-10] MEDS: THIAMINE HCL 100 MG TABLET (FP) PO SCH (21:49)
[2018-03-10] MEDS ORDERED: COLLOIDAL OATMEAL 1 BAR EACH TP PRN (21:54)
[2018-03-10] MEDS: hydrOXYzine PAMOATE 50 MG CAPSULE (FP) PO PRN (21:54)
[2018-03-10] MEDS ORDERED: CARVEDILOL 3.125 MG TABLET (FP) PO SCH (22:00)
[2018-03-10] MEDS ORDERED: MELATONIN 5 MG TABLETS PO PRN (22:00)
[2018-03-10 23:08] LABS: URINE APPEARANCE CLOUDY; URINE COLOR AMBER; URINE GLUCOSE (UA) NEGATIVE (NEGATIVE); URINE KETONE NEGATIVE (NEGATIVE); URINE LEUK ESTERASE 2+ (NEGATIVE); URINE NITRITE NEGATIVE (NEGATIVE); URINE PROTEIN NEGATIVE (NEGATIVE); URINE UROBILINOGEN 4.0 E.U/dl mg/dL (0.2-1.0)
[2018-03-10 23:30] LABS: EPI CELLS RARE /HPF (FEW); URINE BACTERIA MANY /hpf (NONE SEEN); URINE HYALINE CAST 11 /lpf; URINE MUCUS RARE; YEAST RARE
[2018-03-10] MEDS: CARVEDILOL 6.25 MG TABLET (FP) PO SCH (23:40)
[2018-03-11] MEDS: hydrOXYzine PAMOATE 50 MG CAPSULE (FP) PO PRN ×2 (01:26→21:41)
[2018-03-11] MEDS: diazePAM 5 MG TABLET PO SCH ×3 (06:03→22:44)
[2018-03-11] MEDS: levETIRAcetam 500 MG TABLET (FP) PO SCH ×2 (10:30→22:44)
[2018-03-11] MEDS: PRENATAL VITAMINS W/ FOLIC ACID TABLET (FP) PO SCH (10:30)
[2018-03-11] MEDS: CARVEDILOL 6.25 MG TABLET (FP) PO SCH ×2 (10:30→22:43)
[2018-03-11] MEDS: SPIRONOLACTONE 25 MG TABLET (FP) PO SCH (10:31)
[2018-03-11] MEDS: LISINOPRIL 10 MG TABLET (FP) PO SCH (10:31)
[2018-03-11] MEDS: LACTULOSE 20 GM/30 ML UDC (FOR ORAL USE ONLY) PO SCH ×4 (11:05→22:43)
[2018-03-11 11:58] LABS: ALBUMIN 2.2 g/dl (3.4-5.0); ALK PHOS 235 U/L (45-117); ANION GAP 6 MMOL/L (8-16); BILIRUBIN,TOTAL 8.2 mg/dL (0.2-1); BLOOD UREA NITROGEN 21 mg/dL (7-18); CALCIUM 7.7 mg/dL (8.5-10.1); CHLORIDE 103 mmol/L (98-107); CO2 29 mmol/L (21-32); GLUCOSE,RANDOM 115 mg/dL (74-106); POTASSIUM 3.7 mmol/L (3.5-5.1); SGOT/AST 80 U/L (15-37); SGPT/ALT 20 U/L (13-61); SODIUM 138 mmol/L (136-145)
[2018-03-11 12:12] LABS: HEMATOCRIT 24.3 % (32.4-45.2); HEMOGLOBIN 7.9 GM/dL (10.7-15.3); MCHC 32.6 g/dl (32.0-36.0); MEAN CELL VOLUME 98.2 fl (80-96); MEAN PLT VOLUME 8.9 fl (7.5-11.1); PLATELET COUNT 39 K/MM3 (134-434); RBC 2.47 M/mm3 (3.60-5.2); RDW 17.7 % (11.6-15.6); WHITE BLOOD COUNT 2.5 K/mm3 (4.0-10.0)
--- NOTE | 2018-03-11 13:16 | PN ---
[facility] CIWA - CIWA Score Nausea/Vomitin-No Nausea/No Vomiting Muscle Tremors: 3 Anxiety: 3 Agitation: 3 Paroxysmal Sweats: 2 Orientation: 0-Oriented Tacttile Disturbances: 0-None Auditory Disturbances: 0-None Visual Disturbances: 0-None Headache: 0-None Present CIWA-Ar Total Score: 11 [facility] Progress Note (SOAP) Subjective: sweats diarrhea anxiety Objective: 03/11/18 13:14 Vital Signs Temperature 98.2 F 03/11/18 09:49 Pulse Rate 88 03/11/18 09:49 Respiratory Rate 16 03/11/18 09:49 Blood Pressure 103/58 L 03/11/18 09:49 O2 Sat by Pulse Oximetry (%) Laboratory Tests 03/10/18 03/11/18 03/11/18 22:00 07:50 07:50 WBC RBC Hgb Hct MCV MCH MCHC RDW Plt Count MPV Sodium 138 Potassium 3.7 Chloride 103 Carbon Dioxide 29 Anion Gap 6 L BUN 21 H Creatinine 1.0 Creat Clearance w eGFR 59.43 Random Glucose 115 H Calcium 7.7 L Total Bilirubin 8.2 H AST 80 H ALT 20 Alkaline Phosphatase 235 H Ammonia Total Protein 6.0 L Albumin 2.2 L Urine Color Soledad Urine Appearance Cloudy Urine pH 6.0 Ur Specific Hillman 1.014 Urine Protein Negative Urine Glucose (UA) Negative Urine Ketones Negative Urine Blood 2+ H Urine Nitrite Negative Urine Bilirubin 2.0 Urine Urobilinogen 4.0 e.u/dl H Ur Leukocyte Esterase 2+ H Urine WBC (Auto) 5 Urine RBC (Auto) 2 Ur Epithelial Cells Rare Urine Bacteria Many Hyaline Casts 11 Urine Mucus Rare Urine Yeast Rare RPR Titer Nonreactive 03/11/18 03/11/18 07:50 08:00 WBC 2.5 L RBC 2.47 L Hgb 7.9 L Hct 24.3 L MCV 98.2 H MCH 32.0 MCHC 32.6 RDW 17.7 H Plt Count 39 L MPV 8.9 Sodium Potassium Chloride Carbon Dioxide Anion Gap BUN Creatinine Creat Clearance w eGFR Random Glucose Calcium Total Bilirubin AST ALT Alkaline Phosphatase Ammonia 113.20 H Total Protein Albumin Urine Color Urine Appearance Urine pH Ur Specific Hill[place] Urine Protein Urine Glucose (UA) Urine Ketones Urine Blood Urine Nitrite Urine Bilirubin Urine Urobilinogen Ur Leukocyte Esterase Urine WBC (Auto) Urine RBC (Auto) Ur Epithelial Cells Urine Bacteria Hyaline Casts Urine Mucus Urine Yeast RPR Titer labs noted aaox3 ambulating no acute distress Assessment: 03/11/18 13:15 withdrawal sx Plan: continue detox increase fluids continue with laculose iron supplement ordered repeat labs ordered
--- NOTE | 2018-03-11 15:41 | CONSULT ---
[facility] Psychiatric Consult - Data Date of interview: 03/11/18 Admission source: [facility] Identifying data: Readmission to [facility] for this 47 y/o AA female seeking detoxification treatment on for alcohol dependence. Patient is single, a mother of three, domiciled, unemployed and supported on welfare. Substance Abuse History: Enduring history of alcohol abuse (consumes 2 nips of vodka daily since age 24). No history of smoking. Multiple admissions to detoxification/rehabilitation programs (inpatient). Medical History: Hypertension, cirrhosis of the liver, bronchial asthma, kidney disease, COPD, seizure disorder, anemia, CHF, hepatitis C and hypercholesterolemia. Psychiatric History: History of three psychiatric hospitalizations ([facility], [facility] [place]Past treatment with risperdal and gabapentin. Chronically non-adherent to OPD care and medications. Dagnosed with Bipolar Disorder. Used to see a therapist at a clinic in [place] (discharged a few months ago for no shows). Ms Jenkins denies history of suicide attempts. Physical/Sexual Abuse/Trauma History: Patient denies. Additional Comment: Urine Drug Screen Results: BZO-Benzodiazepines. Noted. Mental Status Exam - Mental Status Exam Alert and Oriented to: Time, Place, Person Patient Appearance: Well Groomed Mood: Nervous, Withdrawn Affect: Appropriate, Normal Range Patient Behavior: Fatigued, Cooperative Speech Pattern: Clear Voice Loudness: Normal Thought Process: Goal Oriented Thought Disorder: Not Present Hallucinations: Denies Suicidal Ideation: Denies Homicidal Ideation: Denies Insight/Judgement: Poor Sleep: Well Appetite: Good Muscle strength/Tone: Normal Gait/Station: Normal Psychiatric Findings - Problem List (Clarence 1, 2,3) (1) Alcohol dependence with uncomplicated withdrawal Current Visit: Yes Status: Acute (2) Alcohol-induced mood disorder Current Visit: Yes Status: Acute - Initial Treatment Plan Initial Treatment Plan: Psychoeducation. Sleep hygiene. Detoxification. AA meetings. Informed of treatments available for relapse prevention (naltrexone, acamprosate, AA fellowship, psychotherapy). Observation.
[2018-03-11] MEDS: FERROUS SO4 325 MG TABLET (FP) PO SCH (17:00)
[2018-03-11] MEDS: THIAMINE HCL 100 MG TABLET (FP) PO SCH (22:44)
[2018-03-12] MEDS: FERROUS SO4 325 MG TABLET (FP) PO SCH ×3 (08:10→16:57)
[2018-03-12 10:42] LABS: ALBUMIN 2.3 g/dl (3.4-5.0); ALK PHOS 216 U/L (45-117); ANION GAP 10 MMOL/L (8-16); BILIRUBIN,TOTAL 9.4 mg/dL (0.2-1); BLOOD UREA NITROGEN 18 mg/dL (7-18); CALCIUM 8.4 mg/dL (8.5-10.1); CHLORIDE 106 mmol/L (98-107); CO2 27 mmol/L (21-32); CREATININE 0.9 mg/dL (0.55-1.3); GLUCOSE,RANDOM 78 mg/dL (74-106); POTASSIUM 3.8 mmol/L (3.5-5.1); SGOT/AST 77 U/L (15-37); SGPT/ALT 19 U/L (13-61); SODIUM 143 mmol/L (136-145); TOT PROT 6.6 g/dl (6.4-8.2)
[2018-03-12] MEDS: LISINOPRIL 10 MG TABLET (FP) PO SCH (10:43)
[2018-03-12] MEDS: SPIRONOLACTONE 25 MG TABLET (FP) PO SCH (10:43)
[2018-03-12] MEDS: levETIRAcetam 500 MG TABLET (FP) PO SCH ×2 (10:43→22:12)
[2018-03-12] MEDS: PRENATAL VITAMINS W/ FOLIC ACID TABLET (FP) PO SCH (10:43)
[2018-03-12] MEDS: CARVEDILOL 6.25 MG TABLET (FP) PO SCH ×2 (10:43→22:12)
[2018-03-12] MEDS: diazePAM 5 MG TABLET PO SCH ×2 (10:44→22:13)
[2018-03-12] MEDS: LACTULOSE 20 GM/30 ML UDC (FOR ORAL USE ONLY) PO SCH ×4 (10:44→22:12)
--- NOTE | 2018-03-12 11:14 | PN ---
[facility] CIWA - CIWA Score Nausea/Vomitin-Mild Nausea/No Vomiting Muscle Tremors: 3 Anxiety: 1-Mildly Anxious Agitation: 1-Slight > Activity Paroxysmal Sweats: 1-Minimal Palms Moist Orientation: 0-Oriented Tacttile Disturbances: 1-Very Mild Itch/Numbness Auditory Disturbances: 0-None Visual Disturbances: 0-None Headache: 1-Very Mild CIWA-Ar Total Score: 9 [facility] Progress Note (SOAP) Subjective: tremor sweat gi distress diarrhea Objective: 03/12/18 11:15 Vital Signs Temperature 98.9 F 03/12/18 09:38 Pulse Rate 82 03/12/18 09:38 Respiratory Rate 16 03/12/18 09:38 Blood Pressure 117/79 03/12/18 09:38 O2 Sat by Pulse Oximetry (%) Laboratory Last Values WBC 2.5 K/mm3 (4.0-10.0) L 03/11/18 08:00 RBC 2.47 M/mm3 (3.60-5.2) L 03/11/18 08:00 Hgb 7.9 GM/dL (10.7-15.3) L 03/11/18 08:00 Hct 24.3 % (32.4-45.2) L 03/11/18 08:00 MCV 98.2 fl (80-96) H 03/11/18 08:00 MCH 32.0 pg (25.7-33.7) 03/11/18 08:00 MCHC 32.6 g/dl (32.0-36.0) 03/11/18 08:00 RDW 17.7 % (11.6-15.6) H 03/11/18 08:00 Plt Count 39 K/MM3 (134-434) L 03/11/18 08:00 MPV 8.9 fl (7.5-11.1) 03/11/18 08:00 Sodium 143 mmol/L (136-145) 03/12/18 07:30 Potassium 3.8 mmol/L (3.5-5.1) 03/12/18 07:30 Chloride 106 mmol/L (98-107) 03/12/18 07:30 Carbon Dioxide 27 mmol/L (21-32) 03/12/18 07:30 Anion Gap 10 MMOL/L (8-16) 03/12/18 07:30 BUN 18 mg/dL (7-18) 03/12/18 07:30 Creatinine 0.9 mg/dL (0.55-1.3) 03/12/18 07:30 Creat Clearance w eGFR > 60 (>60) 03/12/18 07:30 Random Glucose 78 mg/dL (74-106) 03/12/18 07:30 Calcium 8.4 mg/dL (8.5-10.1) L 03/12/18 07:30 Total Bilirubin 9.4 mg/dL (0.2-1) H 03/12/18 07:30 AST 77 U/L (15-37) H 03/12/18 07:30 ALT 19 U/L (13-61) 03/12/18 07:30 Alkaline Phosphatase 216 U/L (45-117) H 03/12/18 07:30 Ammonia 91.70 umol/L (11-32) H 03/12/18 07:30 Total Protein 6.6 g/dl (6.4-8.2) 03/12/18 07:30 Albumin 2.3 g/dl (3.4-5.0) L 03/12/18 07:30 Urine Color Soledad 03/10/18 22:00 Urine Appearance Cloudy 03/10/18 22:00 Urine pH 6.0 (5.0-8.0) 03/10/18 22:00 Ur Specific [place] 1.014 (1.010-1.035) 03/10/18 22:00 Urine Protein Negative (NEGATIVE) 03/10/18 22:00 Urine Glucose (UA) Negative (NEGATIVE) 03/10/18 22:00 Urine Ketones Negative (NEGATIVE) 03/10/18 22:00 Urine Blood 2+ (NEGATIVE) H 03/10/18 22:00 Urine Nitrite Negative (NEGATIVE) 03/10/18 22:00 Urine Bilirubin 2.0 (<2.0 mg/dL) 03/10/18 22:00 Urine Urobilinogen 4.0 e.u/dl mg/dL (0.2-1.0) H 03/10/18 22:00 Ur Leukocyte Esterase 2+ (NEGATIVE) H 03/10/18 22:00 Urine WBC (Auto) 5 /hpf (3-5) 03/10/18 22:00 Urine RBC (Auto) 2 /hpf (0-3) 03/10/18 22:00 Ur Epithelial Cells Rare /HPF (FEW) 03/10/18 22:00 Urine Bacteria Many /hpf (NONE SEEN) 03/10/18 22:00 Hyaline Casts 11 /lpf 03/10/18 22:00 Urine Mucus Rare 03/10/18 22:00 Urine Yeast Rare 03/10/18 22:00 RPR Titer Nonreactive (NONREACTIVE) 03/11/18 07:50 lab noted repeat cbc pending continue lactulose 03/12/18 11:16 03/12/18 11:16 Assessment: 03/12/18 11:17 withdrawal sx repeat ua wbc pending repeat ammonia level Plan: continue detox continue lactulose repeat ammonia begin F++
[2018-03-12] MEDS ORDERED: FERROUS SO4 325 MG TABLET (FP) PO SCH (11:30)
[2018-03-12] MEDS ORDERED: SPIRONOLACTONE 25 MG TABLET (FP) PO SCH (11:30)
[2018-03-12 12:17] LABS: MCH 33.7 pg (25.7-33.7); MCHC 34.6 g/dl (32.0-36.0); MEAN CELL VOLUME 97.3 fl (80-96); PLATELET COUNT 44 K/MM3 (134-434); RBC 2.67 M/mm3 (3.60-5.2); WHITE BLOOD COUNT 2.5 K/mm3 (4.0-10.0)
[2018-03-12 15:36] LABS: ANISOCYTOSIS 1+; MACROCYTOSIS 0; OVALOCYTE 1+; PLATELET ESTIMATE DECREASED; TARGET CELLS 1+; TEAR DROP CELLS 1+
[2018-03-12] MEDS: hydrOXYzine PAMOATE 50 MG CAPSULE (FP) PO PRN ×2 (16:57→22:12)
[2018-03-12 21:11] LABS: URINE APPEARANCE CLEAR; URINE COLOR AMBER; URINE GLUCOSE (UA) NEGATIVE (NEGATIVE); URINE KETONE NEGATIVE (NEGATIVE); URINE LEUK ESTERASE NEGATIVE (NEGATIVE); URINE NITRITE NEGATIVE (NEGATIVE); URINE PROTEIN NEGATIVE (NEGATIVE); URINE UROBILINOGEN 4.0 E.U/dl mg/dL (0.2-1.0)
[2018-03-12] MEDS: THIAMINE HCL 100 MG TABLET (FP) PO SCH (22:12)
[2018-03-13] MEDS: hydrOXYzine PAMOATE 50 MG CAPSULE (FP) PO PRN (05:44)
[2018-03-13] MEDS: FERROUS SO4 325 MG TABLET (FP) PO SCH ×3 (08:17→17:59)
[2018-03-13] MEDS: diazePAM 5 MG TABLET PO SCH ×2 (10:09→22:19)
[2018-03-13] MEDS: CARVEDILOL 6.25 MG TABLET (FP) PO SCH ×2 (10:10→22:21)
[2018-03-13] MEDS: SPIRONOLACTONE 25 MG TABLET (FP) PO SCH (10:10)
[2018-03-13] MEDS: LACTULOSE 20 GM/30 ML UDC (FOR ORAL USE ONLY) PO SCH ×4 (10:10→22:19)
[2018-03-13] MEDS: LISINOPRIL 10 MG TABLET (FP) PO SCH (10:10)
[2018-03-13] MEDS: levETIRAcetam 500 MG TABLET (FP) PO SCH ×2 (10:10→22:19)
[2018-03-13] MEDS: PRENATAL VITAMINS W/ FOLIC ACID TABLET (FP) PO SCH (10:10)
--- NOTE | 2018-03-13 11:39 | PN ---
[facility] Progress Note (SOAP) Subjective: feeling better skin itchy Objective: 03/13/18 11:38 Vital Signs Temperature 98.2 F 03/13/18 09:17 Pulse Rate 78 03/13/18 09:17 Respiratory Rate 18 03/13/18 09:17 Blood Pressure 108/67 03/13/18 09:17 O2 Sat by Pulse Oximetry (%) aaox3 ambulating no acute distress Assessment: 03/13/18 11:38 mild withdrawal sx Plan: continue detox increase fluids d/c in am
[2018-03-13] MEDS: THIAMINE HCL 100 MG TABLET (FP) PO SCH (22:19)
[2018-03-14] MEDS: FERROUS SO4 325 MG TABLET (FP) PO SCH (08:03)
--- NOTE | 2018-03-14 09:19 | DS ---
[facility] Detox Discharge Summary Admission Date: 03/10/18 Discharge Date: 03/14/18 - History Present History: Alcohol Dependence - Physical Exam Results Vital Signs: Vital Signs Temperature 98.2 F 03/14/18 07:21 Pulse Rate 80 03/14/18 07:21 Respiratory Rate 18 03/14/18 07:21 Blood Pressure 109/69 03/14/18 07:21 O2 Sat by Pulse Oximetry (%) - Treatment Hospital Course: Detox Protocol Followed, Detoxed Safely, Responded well, Discharged Condition Good, Rehab Referral Accepted - Medication Discharge Medications: Ambulatory Orders Risperidone [Risperdal -] 1 mg PO HS #30 tablet 03/29/14 Quetiapine Fumarate [Seroquel] 150 mg PO HS 10/01/15 Carvedilol [Coreg -] 12.5 mg PO DAILY #60 tablet 01/01/18 Gabapentin [Neurontin -] 300 mg PO TID #90 capsule 01/01/18 Lactulose (Oral Use) [Cephulac -] 20 gm PO DAILY #30 udc 01/01/18 Lisinopril [Prinivil] 10 mg PO DAILY #30 tablet 01/01/18 levETIRAcetam [Keppra -] 500 mg PO BID #60 tablet 01/01/18 Spironolactone 100 mg PO DAILY 03/12/18 Albuterol Sulfate Inhaler - [Ventolin HFA Inhaler -] 2 puff IH Q4H PRN #1 inhaler 03/13/18 Lactulose (Oral Use) [Cephulac -] 20 gm PO QID #1 bottle 03/13/18 Lisinopril [Prinivil] 10 mg PO DAILY #30 tablet 03/13/18 - Diagnosis (1) Alcohol dependence with uncomplicated withdrawal Current Visit: Yes Status: Chronic (2) Alcohol-induced mood disorder Current Visit: Yes Status: Acute (3) Acquired pancytopenia Current Visit: No Status: Chronic (4) Increased ammonia level Current Visit: Yes Status: Acute (5) Substance induced mood disorder Current Visit: No Status: Acute (6) Anemia Current Visit: Yes Status: Chronic Qualifiers: Anemia type: unspecified type Qualified Code(s): D64.9 - Anemia, unspecified (7) Asthma Current Visit: Yes Status: Chronic Qualifiers: Asthma severity: mild Asthma persistence: intermittent Asthma complication type: unspecified Qualified Code(s): J45.20 - Mild intermittent asthma, uncomplicated (8) CHF (congestive heart failure) Current Visit: Yes Status: Chronic (9) Cirrhosis of liver Current Visit: Yes Status: Chronic Qualifiers: Hepatic cirrhosis type: alcoholic cirrhosis Ascites presence: without ascites Qualified Code(s): K70.30 - Alcoholic cirrhosis of liver without ascites (10) Essential hypertension Current Visit: Yes Status: Chronic (11) History of seizure Current Visit: No Status: Chronic (12) Hypercholesterolemia Current Visit: No Status: Chronic (13) Pancytopenia Current Visit: Yes Status: Chronic (14) Bipolar 1 disorder Current Visit: No Status: Suspected (15) Schizoaffective disorder Current Visit: No Status: Suspected (16) Hepatitis C Current Visit: Yes Status: Chronic Qualifiers: Viral hepatitis chronicity: chronic Hepatic coma status: without hepatic coma Qualified Code(s): B18.2 - Chronic viral hepatitis C - AMA Did Patient Leave Against Medical Advice: No (referred to Billy to f/u with PCP)
[2018-03-14] MEDS: levETIRAcetam 500 MG TABLET (FP) PO SCH (09:22)
[2018-03-14] MEDS: CARVEDILOL 6.25 MG TABLET (FP) PO SCH (09:23)
[2018-03-14 09:37] VITALS: BP 108/70; PULSE 91; TEMP 98.1
[2018-03-14] MEDS ORDERED: diazePAM 5 MG TABLET PO SCH (10:00)
== END 2018-03-14 09:44 | disposition home or self-care (01) | DRG 775 ==
LOC: YASAS 17:20 → Y6N 20:26
PROVIDERS: ADMIT Neuromusculoskeletal Medicine & OMM; ATTEND Neuromusculoskeletal Medicine & OMM
PROC: HZ2ZZZZ Detoxification Services for Substance Abuse Treatment (ICD-10-PCS; principal; 2018-03-10)
DX: F10.230 Alcohol dependence with withdrawal, uncomplicated (principal); F10.24 Alcohol dependence with alcohol-induced mood disorder; F10.220 Alcohol dependence with intoxication, uncomplicated; F19.24 Other psychoactive substance dependence with psychoactive substance-induced mood disorder; F31.89 Other bipolar disorder; F25.9 Schizoaffective disorder, unspecified; I11.0 Hypertensive heart disease with heart failure; E72.20 Disorder of urea cycle metabolism, unspecified; J45.20 Mild intermittent asthma, uncomplicated; D61.818 Other pancytopenia; D64.9 Anemia, unspecified; I50.9 Heart failure, unspecified; K70.30 Alcoholic cirrhosis of liver without ascites; E78.00 Pure hypercholesterolemia, unspecified; B18.2 Chronic viral hepatitis C; R00.0 Tachycardia, unspecified; Z86.69 Personal history of other diseases of the nervous system and sense organs
CPT/HCPCS: 36415; 80053; 81003; 81015; 82140; 85025; 85027; 86593